=== PATIENT | female | born 1965 | race Caucasian/White ===

== ENCOUNTER 2017-11-17 14:33 | Emergency (ER) | payer SELFPAY ==
[2016-01-05 09:26] VITALS: Ht 154.9 cm; Wt 81.6 kg
[~2017-11-17] VITALS: Ht 154.9 cm; Wt 81.6 kg
[~2017-11-17 14:33] MED LIST: ALB0.5 INH; ALB17R INH; ALBU8.5H12 IH; ALBUDR INH; ALPR-429 PO; AMLO-96 PO; AMLO-99 PO; ATOR10TA2 PO; ATOR20TA22 PO; AUG500 PO; AZI250 PO; AZIT500T47 PO; BACDS PO; BUTA-324 PO; CAR350 PO; CARI250T10 PO; CEP500 PO; CIP500 PO; CIPR-214 PO; CIPR-326 PO; CIT20 PO; CITA-156 PO; CLIN150C15 PO; CLON-1 PO; CYC10 PO; CYCL-277 PO; CYCL-332 PO; CYCL-343 PO; CYCL10TA29 PO; DIA5 PO; DIAZ-1 PO; DICL-195 PO; DIP25 PO; DOC100 PO; DOXY-179 PO; ESC10 PO; FIO PO; FLU20 PO; FLUO40CA76 PO; GABA-1 PO; HCTZ25 GT; HCTZ25 PO; HYD2 PO; HYDR-2966 PO; HYDR-3074 PO; HYDR-3250 GT; HYDR-3250 PO; HYDR-4228 PO; HYDR-4240 PO; HYDR-4309 PO; HYDR12.558 PO; HYDR50CA47 PO; IBU600 PO; IBU800 PO; IBUP-1618 PO; IBUP600T22 PO; IPRA3AMP36 IH; KET10 PO; LEVE250T63 PO; LEVO-85 PO; LEVO750T27 PO; LID5T TP; LOR05 PO; LOR1 PO; LOR5 PO; LOR5/325 PO; LOR7.5/325 PO; LOR75 PO; LORA-1456 PO; LORA-630 PO; MEC25 PO; MECL-111 PO; MECL-205 PO; MET50 PO; META400T PO; METH-280 PO; METH-543 PO; METH500T PO; METO25TA93 PO; METO50TA GT; METO50TA PO; METR-1 PO; METXL50 PO; MORS15 PO; NAP250 PO; NAP375 PO; NAP500 PO; NAP550 PO; NAPR275T86 PO; ONDA4TAB PO; OXYC-373 PO; OXYC-689 PO; OXYC-865 PO; OXYC1TAB54 PO; PARO10OR3 PO; PARO30TA71 PO; PER PO; PHEN200T32 PO; PRE10 PO; PRE20 PO; PRED-314 PO; PRED20TA6 PO; PRO25 PO; PROAIRPT IH; PROM-110 PO; PROM25S PR; RAN150 PO; ROBC PO; SER50 PO; SOMA; SULF-198 PO; SUMA50TA34 PO; TIZ4 GT; TRA50 PO; TRAM-420 PO; TRAZ50 PO; ULT PO; [UNRECOGNIZED DRUG - CODE] IV
--- NOTE | 2017-11-17 14:53 | ER Report ---
History and Physical Time Seen By MD: 14:52 HPI/ROS CHIEF COMPLAINT: foot pain HISTORY OF PRESENT ILLNESS: This is a 52 year old female. She had pain in the great toe of the right foot. Painful even to light touch. Swelling and hot. Has had similar previously and though she had gout. Family history of gout. No injury. No rash or sores. Allergies: Coded Allergies: amitriptyline (Verified Allergy, Severe, SWELLING, 11/17/17) Penicillins (Verified Allergy, Intermediate, SWELLING, 11/17/17) indomethacin (Verified Allergy, Intermediate, 11/17/17) metaxalone (Verified Allergy, Intermediate, ANXIETY, PACING, FEELS SWELLING IN THROAT, 11/17/17) trazodone (Verified Allergy, Intermediate, SWELLING, 11/17/17) amoxicillin (Verified Allergy, Unknown, 11/17/17) baclofen (Verified Allergy, Unknown, 11/17/17) cyclobenzaprine (Verified Allergy, Unknown, 11/17/17) Uncoded Allergies: SOME CHOLESTEROL MED (Adverse Reaction, Mild, 06/01/11) Home Meds Active Scripts Oxycodone Hcl/Acetaminophen (PERCOCET 5-325 MG TABLET) 1 Each Tablet, 1 EACH PO Q4H Y for PAIN, #12 TAB 0 Refills Prov:YADIRA BASSETT MD 11/17/17 Methylprednisolone (METHYLPREDNISOLONE) 4 Mg Tab.ds.pk, 4 MG PO DIRECTED, #1 PACK 0 Refills Prov:YADIRA BASSETT MD 11/17/17 Ondansetron (ZOFRAN ODT) 4 Mg Tab.rapdis, 4 MG PO Q6H Y for NAUSEA/VOMITING, # 20 TAB.ESTHER Prov:JUVENTINO PEREZ PA-C 04/06/17 Tramadol Hcl (TRAMADOL HCL) 50 Mg Tablet, 50-100 MG PO Q4-6H for PAIN, #20 TAB Prov:MATTHEW BRADFORD DO 04/01/16 Reported Medications Lorazepam (LORAZEPAM) 0.5 Mg Tablet, 0.5 MG PO PRN 03/04/17 Amlodipine Besylate (AMLODIPINE BESYLATE) 10 Mg Tablet, 1 TAB PO QDAY, TAB 03/04/17 Paroxetine Hcl (PAROXETINE HCL) 30 Mg Tablet, 30 MG PO HS 08/12/16 Discontinued Scripts Diazepam (VALIUM) 5 Mg Tablet, 5 MG PO Q6-8H Y for MUSCLE SPASMS, #15 TAB Prov:ALEXANDRA SERRANO V DO 09/02/17 Oxycodone Hcl/Acetaminophen (OXYCODONE-ACETAMINOPHEN 5-325) 1 Each Tablet, 1 EACH PO Q6-8H Y for PAIN, #12 TAB Prov:ALEXANDRA SERRANO V DO 09/02/17 Reviewed Nurses Notes: Yes Hx Smoking: Yes (VAPOR) Smoking Status: Current: Every Day Smoker Exposure to Second Hand Smoke?: No Hx Substance Use Disorder: No Hx Alcohol Use: No Constitutional Vital Sign - Last 24 Hours 11/17/17 11/17/17 14:51 16:30 Temp 98.3 Pulse 93 Resp 22 B/P (MAP) 147/84 153/93 (113) Pulse Ox 98 O2 Delivery Room Air Physical Exam General: Alert, acute distress due to pain. Musculoskeletal: Pain right great toe. Pain with palpation, even light palpation. Pain with movement. No deformity. Skin: Red, warm, no skin breakdown. Cardiovascular: normal cap refill. Neuro: Normal sensation. Medical Decision Making Data Points Result Diagram: 11/17/17 1554 11/17/17 1554 Laboratory Hematology Test 11/17/17 15:54 Red Blood Count 5.25 M/uL (4.17-5.56) Mean Corpuscular Volume 86.4 fL (80.0-96.0) Mean Corpuscular Hemoglobin 29.7 pg (26.0-33.0) Mean Corpuscular Hemoglobin Concent 34.4 g/dL (32.0-36.0) Red Cell Distribution Width 13.1 % (11.5-14.5) Mean Platelet Volume 9.1 fL (7.2-11.1) Neutrophils (%) (Auto) 72.6 % (39.4-72.5) Lymphocytes (%) (Auto) 17.9 % (17.6-49.6) Monocytes (%) (Auto) 5.9 % (4.1-12.4) Eosinophils (%) (Auto) 2.7 % (0.4-6.7) Basophils (%) (Auto) 0.9 % (0.3-1.4) Nucleated RBC Relative Count (auto) 0.0 /100WBC Neutrophils # (Auto) 7.7 K/uL (2.0-7.4) Lymphocytes # (Auto) 1.9 K/uL (1.3-3.6) Monocytes # (Auto) 0.6 K/uL (0.3-1.0) Eosinophils # (Auto) 0.3 K/uL (0.0-0.5) Basophils # (Auto) 0.1 K/uL (0.0-0.1) Nucleated RBC Absolute Count (auto) 0.00 K/uL Sodium Level 142 mmol/L (137-145) Potassium Level 3.7 mmol/L (3.5-5.0) Chloride Level 103 mmol/L (98-107) Carbon Dioxide Level 27 mmol/L (22-31) Blood Urea Nitrogen 12 mg/dl (7-18) Creatinine 0.80 mg/dl (0.52-1.04) Glomerular Filtration Rate Calc > 60.0 Random Glucose 101 mg/dl (75-110) Uric Acid 5.8 mg/dl (2.5-7.5) Calcium Level 8.9 mg/dl (8.4-10.2) Total Bilirubin 0.2 mg/dl (0.2-1.3) Aspartate Amino Transf (AST/SGOT) 23 U/L (0-35) Alanine Aminotransferase (ALT/SGPT) 35 U/L (0-56) Alkaline Phosphatase 100 U/L (0-126) Total Protein 7.7 gm/dl (6.3-8.2) Albumin 4.1 g/dl (3.5-5.0) Chemistry Test 11/17/17 15:54 White Blood Count 10.6 k/uL (4.5-11.0) Red Blood Count 5.25 M/uL (4.17-5.56) Hemoglobin 15.6 g/dL (12.0-16.0) Hematocrit 45.4 % (34.0-47.0) Mean Corpuscular Volume 86.4 fL (80.0-96.0) Mean Corpuscular Hemoglobin 29.7 pg (26.0-33.0) Mean Corpuscular Hemoglobin Concent 34.4 g/dL (32.0-36.0) Red Cell Distribution Width 13.1 % (11.5-14.5) Platelet Count 279 K/uL (150-450) Mean Platelet Volume 9.1 fL (7.2-11.1) Neutrophils (%) (Auto) 72.6 % (39.4-72.5) Lymphocytes (%) (Auto) 17.9 % (17.6-49.6) Monocytes (%) (Auto) 5.9 % (4.1-12.4) Eosinophils (%) (Auto) 2.7 % (0.4-6.7) Basophils (%) (Auto) 0.9 % (0.3-1.4) Nucleated RBC Relative Count (auto) 0.0 /100WBC Neutrophils # (Auto) 7.7 K/uL (2.0-7.4) Lymphocytes # (Auto) 1.9 K/uL (1.3-3.6) Monocytes # (Auto) 0.6 K/uL (0.3-1.0) Eosinophils # (Auto) 0.3 K/uL (0.0-0.5) Basophils # (Auto) 0.1 K/uL (0.0-0.1) Nucleated RBC Absolute Count (auto) 0.00 K/uL Glomerular Filtration Rate Calc > 60.0 Uric Acid 5.8 mg/dl (2.5-7.5) Calcium Level 8.9 mg/dl (8.4-10.2) Total Bilirubin 0.2 mg/dl (0.2-1.3) Aspartate Amino Transf (AST/SGOT) 23 U/L (0-35) Alanine Aminotransferase (ALT/SGPT) 35 U/L (0-56) Alkaline Phosphatase 100 U/L (0-126) Total Protein 7.7 gm/dl (6.3-8.2) Albumin 4.1 g/dl (3.5-5.0) EKG/Imaging Imaging Exam type: TOE RIGHT FOOT GREAT TOE History: toe pain Comparison: None Findings: There are mild degenerative changes of the right first metatarsophalangeal joint with lateral spurring. There is no evidence of acute fracture or dislocation seen. There is mild narrowing at the IP joint of the right great toe as well. IMPRESSION: 1. Moderate joint changes at the right first metatarsophalangeal joint and first IP joint Report Dictated By: Bailey Woody MD at 11/17/2017 3:49 PM ED Course/Re-evaluation ED Course Gave Percocet 5/325 2 tablets for pain. Imaging as noted above. Labs unremarkable. Allergy to indomethacin, will give Medrol dosepack and Percocet for pain. Decision to Disposition Date: Nov 17, 2017 Decision to Disposition Time: 16:34 Depart Departure Latest Vital Signs Vital Signs Date Time Temp Pulse Resp B/P (MAP) Pulse Ox O2 Delivery O2 Flow Rate FiO2 11/17/17 16:30 153/93 (113) 11/17/17 14:51 98.3 93 22 98 Room Air Impression: Primary Impression: Gout Condition: Improved Disposition: HOME OR SELF-CARE New Scripts Oxycodone Hcl/Acetaminophen (PERCOCET 5-325 MG TABLET) 1 Each Tablet 1 EACH PO Q4H Y for PAIN, #12 TAB 0 Refills Prov: YADIRA BASSETT MD 11/17/17 Methylprednisolone (METHYLPREDNISOLONE) 4 Mg Tab.ds.pk 4 MG PO DIRECTED, #1 PACK 0 Refills Prov: YADIRA BASSETT MD 11/17/17 Patient Instructions: Gout (ED) Additional Instructions: Take the steroid pack Medrol dosepak over the next 6 days. Take Percocet 5/325, one every 4 hours as needed for pain. Problem Qualifiers Primary Impression: Gout Gout site: toe Gout etiology: unspecified cause Chronicity: acute Laterality: right Qualified Codes: M10.9 - Gout, unspecified YADIRA BASSETT MD Nov 17, 2017 14:53
--- NOTE | 2017-11-17 15:55 | RADIOLOGY IMAGING REPORT ---
FACILITY: [facility] PATIENT NAME: Veronica Rosario : 1965 MR: [id number] V: [id number] EXAM DATE: ORDERING PHYSICIAN: YADIRA BASSETT TECHNOLOGIST: Location: [facility] - [place] Patient: Veronica Rosario : 1965 Visit/Account:[id number] Date of Sevice: 11/17/2017 Exam type: TOE RIGHT FOOT GREAT TOE History: toe pain Comparison: None Findings: There are mild degenerative changes of the right first metatarsophalangeal joint with lateral spurrin g. There is no evidence of acute fracture or dislocation seen. There is mild narrowing at the IP juan int of the right great toe as well. IMPRESSION: 1. Moderate joint changes at the right first metatarsophalangeal joint and first IP joint Report Dictated By: Bailey Woody MD at 11/17/2017 3:49 PM Report E-Signed By: Bailey Woody MD at 11/17/2017 3:51 PM WSN:[email or web address]
[2017-11-17 16:08] LABS: PLATELET COUNT, AUTOMATED 279 K/uL (150-450)
[2017-11-17 16:30] VITALS: BP 153/93
[2017-11-17] MEDS ORDERED: OXYC-865 PO (16:37)
[2017-11-17] MEDS ORDERED: METH4TAB66 PO (16:37)
== END 2017-11-17 16:53 | disposition home or self-care (01) ==
LOC: ER 15:00
DX: M10.9 Gout, unspecified (principal)
CPT/HCPCS: 36415; 82040; 82247; 82310; 82374; 82435; 82565; 82947; 84075; 84132; 84155; 84295; 84450; 84460; 84520; 84550; 85025; 99283

== ENCOUNTER 2018-02-12 10:10 | Emergency (ER) | payer SELFPAY ==
[2016-01-05 09:26] VITALS: Wt 89.4 kg
[~2018-02-12 10:10] MED LIST changes: +METH4TAB66 PO
[2018-02-12] MEDS ORDERED: TIZA2CAP3 PO (10:22)
[2018-02-12] MEDS ORDERED: LIDO700A19 (10:22)
[2018-02-12] MEDS ORDERED: LISI5TAB25 PO (10:22)
[2018-02-12] MEDS ORDERED: NS(*) 0.9% 1000 ML BAG 1,000 ML IV ONE (10:24)
[2018-02-12] MEDS ORDERED: diphenhydrAMINE 50 MG/ML VIAL IVP ONE (10:25)
[2018-02-12] MEDS ORDERED: METOCLOPRAMIDE 10 MG/2 ML SDV IVP ONE (10:25)
[2018-02-12] MEDS ORDERED: KETOROLAC 30 MG/ML VIAL IVP ONE (10:25)
--- NOTE | 2018-02-12 10:27 | ER Report ---
History and Physical Time Seen By MD: 10:26 Hx. of Stated Complaint: PT HAVING USUAL MIGRAINE, AWOKE HER AT 0200, WITH N/V HPI/ROS CHIEF COMPLAINT: Typical migraine headache HISTORY OF PRESENT ILLNESS: Patient is a 53-year-old female with known migraine history who presents with her typical migraine symptoms. She denies any changes in character or quality of the pain. She woke up around 2 AM with headache and nausea and vomiting. This is persistent through this morning which is why she comes to the emergency department for evaluation. Patient denies head injury. She denies any fever or other infectious type symptoms. She denies neck stiffness. REVIEW OF SYSTEMS: Constitutional: No fever, no chills. Eyes: No discharge. ENT: No sore throat. Cardiovascular: No chest pain, no palpitations. Respiratory: No cough, no shortness of breath. Gastrointestinal: Nausea with vomiting Genitourinary: No hematuria. Musculoskeletal: No back pain. Skin: No rashes. Neurological: Headache Allergies: Coded Allergies: amitriptyline (Verified Allergy, Severe, SWELLING, 02/12/18) Penicillins (Verified Allergy, Intermediate, SWELLING, 02/12/18) indomethacin (Verified Allergy, Intermediate, 02/12/18) metaxalone (Verified Allergy, Intermediate, ANXIETY, PACING, FEELS SWELLING IN THROAT, 02/12/18) trazodone (Verified Allergy, Intermediate, SWELLING, 02/12/18) amoxicillin (Verified Allergy, Unknown, 11/17/17) baclofen (Verified Allergy, Unknown, 02/12/18) cyclobenzaprine (Verified Allergy, Unknown, 02/12/18) Uncoded Allergies: SOME CHOLESTEROL MED (Adverse Reaction, Mild, 06/01/11) Home Meds Active Scripts Oxycodone Hcl/Acetaminophen (PERCOCET 5-325 MG TABLET) 1 Each Tablet, 1 EACH PO Q4H Y for PAIN, #12 TAB 0 Refills Prov:YADIRA BASSETT MD 11/17/17 Reported Medications Lidocaine (Lidocaine) 5 % Adh..patch 02/12/18 Lisinopril (LISINOPRIL) 5 Mg Tablet, 5 MG PO QDAY, TAB 02/12/18 Tizanidine Hcl (TIZANIDINE HCL) 2 Mg Capsule, 2 MG PO TID, CAPSULE 02/12/18 Amlodipine Besylate (AMLODIPINE BESYLATE) 10 Mg Tablet, 1 TAB PO QDAY, TAB 03/04/17 Paroxetine Hcl (PAROXETINE HCL) 30 Mg Tablet, 30 MG PO HS 08/12/16 Discontinued Reported Medications Lorazepam (LORAZEPAM) 0.5 Mg Tablet, 0.5 MG PO PRN 03/04/17 Discontinued Scripts Methylprednisolone (METHYLPREDNISOLONE) 4 Mg Tab.ds.pk, 4 MG PO DIRECTED, #1 PACK 0 Refills Prov:YADIRA BASSETT MD 11/17/17 Ondansetron (ZOFRAN ODT) 4 Mg Tab.rapdis, 4 MG PO Q6H Y for NAUSEA/VOMITING, # 20 TAB.ESTHER Prov:JUVENTINO PEREZ PA-C 04/06/17 Tramadol Hcl (TRAMADOL HCL) 50 Mg Tablet, 50-100 MG PO Q4-6H for PAIN, #20 TAB Prov:MATTHEW BRADFORD DO 04/01/16 Past Medical/Surgical History Past medical history for hypertension lumbar degenerative disc disease, pneumonia, migraine headaches Hx Smoking: Yes (VAPOR) Smoking Status: Current: Every Day Smoker Exposure to Second Hand Smoke?: No Hx Substance Use Disorder: No Hx Alcohol Use: No Constitutional Vital Sign - Last 24 Hours 02/12/18 02/12/18 02/12/18 02/12/18 10:13 10:15 10:30 10:40 Temp 98.3 Pulse 93 Resp 24 B/P (MAP) 150/91 (110) 150/91 141/81 (101) Pulse Ox 95 O2 Flow Rate 2.0 02/12/18 10:40 Pulse 87 Pulse Ox 90 Physical Exam General/Constitutional: Patient is awake, alert, nontoxic and in no acute respiratory distress. Head: Normocephalic and atraumatic. Eyes: Conjunctival clear, Pupils are equal and reactive to light. Extraocular muscles are intact and symmetrical. Sclera are clear and anicteric. Ears:External canals are clear. Tympanic membranes are clear with normal landmarks and light reflex. Nares: No rhinorrhea or bleeding. Turbinates are pink and moist. Oropharyngeal: Mucous membranes are moist. There is no pharyngeal erythema or exudate. There are no palatal petechiae. Uvula is midline and symmetrical. Neck: Supple, no adenopathy. Cardiovascular: Heart is regular rate and rhythm without audible murmurs, rubs or gallops. Pulmonary: Lungs are clear to auscultation bilaterally. There are no wheezes, rales, or rhonchi. Chest rise is symmetrical Abdomen: Soft, nontender, no guarding or peritoneal signs. Extremities: No gross deformities, No peripheral cyanosis. Able to move all 4 extremities. Neuro: Alert and oriented X3, Cranial nerves 2 thru 12 are intact and symmetrical. Skin: No rashes, skin is warm dry and well perfused. Medical Decision Making Data Points Result Diagram: 02/12/18 1031 02/12/18 1031 Laboratory Hematology Test 02/12/18 10:31 Red Blood Count 6.22 M/uL (4.17-5.56) Mean Corpuscular Volume 88.4 fL (80.0-96.0) Mean Corpuscular Hemoglobin 29.5 pg (26.0-33.0) Mean Corpuscular Hemoglobin Concent 33.3 g/dL (32.0-36.0) Red Cell Distribution Width 14.2 % (11.5-14.5) Mean Platelet Volume 9.1 fL (7.2-11.1) Neutrophils (%) (Auto) 74.7 % (39.4-72.5) Lymphocytes (%) (Auto) 16.9 % (17.6-49.6) Monocytes (%) (Auto) 5.0 % (4.1-12.4) Eosinophils (%) (Auto) 2.1 % (0.4-6.7) Basophils (%) (Auto) 1.3 % (0.3-1.4) Nucleated RBC Relative Count (auto) 0.1 /100WBC Neutrophils # (Auto) 8.0 K/uL (2.0-7.4) Lymphocytes # (Auto) 1.8 K/uL (1.3-3.6) Monocytes # (Auto) 0.5 K/uL (0.3-1.0) Eosinophils # (Auto) 0.2 K/uL (0.0-0.5) Basophils # (Auto) 0.1 K/uL (0.0-0.1) Nucleated RBC Absolute Count (auto) 0.01 K/uL Sodium Level 146 mmol/L (137-145) Potassium Level 3.9 mmol/L (3.5-5.0) Chloride Level 98 mmol/L (98-107) Carbon Dioxide Level 30 mmol/L (22-31) Blood Urea Nitrogen 19 mg/dl (7-18) Creatinine 0.70 mg/dl (0.52-1.04) Glomerular Filtration Rate Calc > 60.0 Random Glucose 134 mg/dl (75-110) Calcium Level 10.4 mg/dl (8.4-10.2) Total Bilirubin 0.9 mg/dl (0.2-1.3) Aspartate Amino Transf (AST/SGOT) 28 U/L (0-35) Alanine Aminotransferase (ALT/SGPT) 35 U/L (0-56) Alkaline Phosphatase 73 U/L (0-126) Total Protein 10.1 gm/dl (6.3-8.2) Albumin 5.2 g/dl (3.5-5.0) Chemistry Test 02/12/18 10:31 White Blood Count 10.8 k/uL (4.5-11.0) Red Blood Count 6.22 M/uL (4.17-5.56) Hemoglobin 18.3 g/dL (12.0-16.0) Hematocrit 55.0 % (34.0-47.0) Mean Corpuscular Volume 88.4 fL (80.0-96.0) Mean Corpuscular Hemoglobin 29.5 pg (26.0-33.0) Mean Corpuscular Hemoglobin Concent 33.3 g/dL (32.0-36.0) Red Cell Distribution Width 14.2 % (11.5-14.5) Platelet Count 326 K/uL (150-450) Mean Platelet Volume 9.1 fL (7.2-11.1) Neutrophils (%) (Auto) 74.7 % (39.4-72.5) Lymphocytes (%) (Auto) 16.9 % (17.6-49.6) Monocytes (%) (Auto) 5.0 % (4.1-12.4) Eosinophils (%) (Auto) 2.1 % (0.4-6.7) Basophils (%) (Auto) 1.3 % (0.3-1.4) Nucleated RBC Relative Count (auto) 0.1 /100WBC Neutrophils # (Auto) 8.0 K/uL (2.0-7.4) Lymphocytes # (Auto) 1.8 K/uL (1.3-3.6) Monocytes # (Auto) 0.5 K/uL (0.3-1.0) Eosinophils # (Auto) 0.2 K/uL (0.0-0.5) Basophils # (Auto) 0.1 K/uL (0.0-0.1) Nucleated RBC Absolute Count (auto) 0.01 K/uL Glomerular Filtration Rate Calc > 60.0 Calcium Level 10.4 mg/dl (8.4-10.2) Total Bilirubin 0.9 mg/dl (0.2-1.3) Aspartate Amino Transf (AST/SGOT) 28 U/L (0-35) Alanine Aminotransferase (ALT/SGPT) 35 U/L (0-56) Alkaline Phosphatase 73 U/L (0-126) Total Protein 10.1 gm/dl (6.3-8.2) Albumin 5.2 g/dl (3.5-5.0) ED Course/Re-evaluation Clinical Indication for ER IV: Hydration, IV Access ED Course Patient with typical migraine headache. Plan this time will be IV access with IV Toradol, IV Zofran and IV fluids and IV Benadryl. We will check CBC and electrolytes. Re-evaluation 02/12/2018 11:12:12 am patient feeling improved at this time will discharge home Decision to Disposition Date: February 12, 2018 Decision to Disposition Time: 11:14 Depart Departure Latest Vital Signs Vital Signs Date Time Temp Pulse Resp B/P (MAP) Pulse Ox O2 Delivery O2 Flow Rate FiO2 02/12/18 10:40 87 90 02/12/18 10:40 2.0 02/12/18 10:30 141/81 (101) 02/12/18 10:15 98.3 24 Impression: Primary Impression: Migraine Condition: Improved Disposition: HOME OR SELF-CARE New Scripts Ondansetron Hcl (ZOFRAN) 4 Mg Tablet 4 MG PO Q8H for Nausea, #15 TAB 0 Refills Prov: VERNON LAWS MD 02/12/18 Oxycodone Hcl/Acetaminophen (PERCOCET 5-325 MG TABLET) 1 Each Tablet 1 EACH PO Q6H for PAIN, #9 TAB 0 Refills Prov: VERNON LAWS MD 02/12/18 Patient Instructions: Migraine Headache (GEN) Problem Qualifiers Primary Impression: Migraine Migraine type: unspecified Status migrainosus presence: without status migrainosus Intractability: not intractable Qualified Codes: G43.909 - Migraine, unspecified, not intractable, without status migrainosus VERNON LAWS MD February 12, 2018 10:27
[2018-02-12 10:51] LABS: PLATELET COUNT, AUTOMATED 326 K/uL (150-450)
[2018-02-12 11:00] VITALS: BP 132/71
[2018-02-12] MEDS ORDERED: OXYC-865 PO (11:13)
[2018-02-12] MEDS ORDERED: ONDA4TAB97 PO (11:13)
== END 2018-02-12 11:25 | disposition home or self-care (01) ==
LOC: ER 10:33
DX: G43.909 Migraine, unspecified, not intractable, without status migrainosus (principal)
CPT/HCPCS: 85025; 96361; 96374; 96375; 99284; J1200; J1885; J2765; J7030; 82040; 82247; 82310; 82374; 82435; 82565; 82947; 84075; 84132; 84155; 84295; 84450; 84460; 84520

== ENCOUNTER 2018-02-13 16:35 | Emergency (ER) | payer SELFPAY ==
[2016-01-05 09:26] VITALS: Wt 89.4 kg
[~2018-02-13 16:35] MED LIST changes: +LIDO700A19; +LISI5TAB25 PO; +ONDA4TAB97 PO; +TIZA2CAP3 PO
--- NOTE | 2018-02-13 16:41 | ER Report ---
History and Physical Time Seen By MD: 16:40 (JAYJAY HARRY DO) HPI/ROS CHIEF COMPLAINT: Headache, hypoxia, reported altered mental status at home while sleeping HISTORY OF PRESENT ILLNESS: Patient is a 53-year-old female here with complaints of headache, mental pain in and around her head. She was reportedly evaluated here yesterday at which time the pain was alleviated however the patient reports that the pain came back when she went home. She also feels as if she is "drunk" feeling. Patient was noted to be hypoxic with an oxygen saturation of 65 on room air at time of arrival. Patient admits to taking 1 Percocet this morning at approximately 6:00 and denies any other depressant usage. REVIEW OF SYSTEMS: Constitutional: No fever, + chills. Eyes: No discharge. ENT: No sore throat. Cardiovascular: No chest pain, no palpitations. Respiratory: No cough, no shortness of breath. Gastrointestinal: No abdominal pain, no vomiting. Genitourinary: No hematuria. Musculoskeletal: + chronic neck and back pain Skin: No rashes. Neurological: + headache. (JAYJAY HARRY DO) Allergies: Coded Allergies: amitriptyline (Verified Allergy, Severe, SWELLING, 02/12/18) Penicillins (Verified Allergy, Intermediate, SWELLING, 02/12/18) indomethacin (Verified Allergy, Intermediate, 02/12/18) metaxalone (Verified Allergy, Intermediate, ANXIETY, PACING, FEELS SWELLING IN THROAT, 02/12/18) trazodone (Verified Allergy, Intermediate, SWELLING, 02/12/18) amoxicillin (Verified Allergy, Unknown, 11/17/17) baclofen (Verified Allergy, Unknown, 02/12/18) cyclobenzaprine (Verified Allergy, Unknown, 02/12/18) Uncoded Allergies: SOME CHOLESTEROL MED (Adverse Reaction, Mild, 06/01/11) Home Meds Active Scripts Ondansetron Hcl (ZOFRAN) 4 Mg Tablet, 4 MG PO Q8H for Nausea, #15 TAB 0 Refills Prov:VERNON LAWS MD 02/12/18 Oxycodone Hcl/Acetaminophen (PERCOCET 5-325 MG TABLET) 1 Each Tablet, 1 EACH PO Q6H for PAIN, #9 TAB 0 Refills Prov:VERNON LAWS MD 02/12/18 Oxycodone Hcl/Acetaminophen (PERCOCET 5-325 MG TABLET) 1 Each Tablet, 1 EACH PO Q4H Y for PAIN, #12 TAB 0 Refills Prov:YADIRA BASSETT MD 11/17/17 Reported Medications Lidocaine (Lidocaine) 5 % Adh..patch 02/12/18 Lisinopril (LISINOPRIL) 5 Mg Tablet, 5 MG PO QDAY, TAB 02/12/18 Tizanidine Hcl (TIZANIDINE HCL) 2 Mg Capsule, 2 MG PO TID, CAPSULE 02/12/18 Amlodipine Besylate (AMLODIPINE BESYLATE) 10 Mg Tablet, 1 TAB PO QDAY, TAB 03/04/17 Paroxetine Hcl (PAROXETINE HCL) 30 Mg Tablet, 30 MG PO HS 08/12/16 Discontinued Reported Medications Lorazepam (LORAZEPAM) 0.5 Mg Tablet, 0.5 MG PO PRN 03/04/17 Discontinued Scripts Methylprednisolone (METHYLPREDNISOLONE) 4 Mg Tab.ds.pk, 4 MG PO DIRECTED, #1 PACK 0 Refills Prov:YADIRA BASSETT MD 11/17/17 Ondansetron (ZOFRAN ODT) 4 Mg Tab.rapdis, 4 MG PO Q6H Y for NAUSEA/VOMITING, # 20 TAB.ESTHER Prov:JUVENTINO PEREZ PA-C 04/06/17 Tramadol Hcl (TRAMADOL HCL) 50 Mg Tablet, 50-100 MG PO Q4-6H for PAIN, #20 TAB Prov:MATTHEW BRADFORD DO 04/01/16 Past Medical/Surgical History Appendectomy, cholecystectomy, C sections x several (JAYJAY HARRY DO) Hx Smoking: Yes (VAPOR) Smoking Status: Current: Every Day Smoker Exposure to Second Hand Smoke?: No Hx Substance Use Disorder: No Hx Alcohol Use: No (JAYJAY HARRY DO) Constitutional Vital Sign - Last 24 Hours 02/13/18 02/13/18 02/13/18 02/13/18 16:42 16:43 17:00 17:05 Temp 99.3 Pulse 84 76 78 Resp 16 B/P (MAP) 149/91 145/82 (103) Pulse Ox 65 98 96 O2 Delivery Room Air O2 Flow Rate 4.0 02/13/18 02/13/18 02/13/18 02/13/18 17:20 17:50 18:00 18:20 Pulse 76 77 76 Resp 16 13 17 B/P (MAP) 147/128 (134) Pulse Ox 93 96 94 02/13/18 02/13/18 02/13/18 02/13/18 18:30 18:35 18:50 19:00 Pulse 75 87 Resp 23 B/P (MAP) 142/79 (100) 149/90 (109) Pulse Ox 98 97 02/13/18 02/13/18 02/13/18 02/13/18 19:05 19:20 19:20 19:20 Pulse ??? 76 Resp 11 Pulse Ox 100 97 96 O2 Delivery Nasal Cannula O2 Flow Rate 2.0 2.0 02/13/18 02/13/18 02/13/18 02/13/18 19:20 19:28 19:28 19:30 Pulse 79 76 Resp 18 18 B/P (MAP) 147/96 (113) Pulse Ox 99 O2 Delivery Nasal Cannula 02/13/18 02/13/18 02/13/18 19:35 19:40 19:45 Pulse 80 83 78 Resp 16 22 16 Pulse Ox 81 89 94 (ELAINE CHILEL DO) Physical Exam General Appearance: [The patient is alert, has no immediate need for airway protection and no signs of toxicity.] [ ] [Eyes:] [Pupils equal and round no pallor or injection.] [ENT, Mouth:] [Mucous membranes are moist.] Respiratory: [There are no retractions, lungs are clear to auscultation.] Cardiovascular: [Regular rate and rhythm.] [ ] Gastrointestinal: [Abdomen is soft and non tender, no masses, bowel sounds normal.] [Neurological:] [ ] [Skin:] [Warm and dry, no rashes.] [Musculoskeletal:] [Neck is supple non tender.] [Extremities are nontender, nonswollen and have full range of motion.] [ ] [DIFFERENTIAL DIAGNOSIS: After history and physical exam differential diagnosis was considered for] [ ] (JAYJAY HARRY DO) Medical Decision Making Data Points Result Diagram: 02/13/18 1710 02/13/18 171 Laboratory Hematology Test 02/13/18 17:10 02/13/18 18:14 Red Blood Count 4.88 M/uL (4.17-5.56) Mean Corpuscular Volume 87.4 fL (80.0-96.0) Mean Corpuscular Hemoglobin 30.6 pg (26.0-33.0) Mean Corpuscular Hemoglobin Concent 35.0 g/dL (32.0-36.0) Red Cell Distribution Width 14.0 % (11.5-14.5) Mean Platelet Volume 8.7 fL (7.2-11.1) Neutrophils (%) (Auto) 87.8 % (39.4-72.5) Lymphocytes (%) (Auto) 8.5 % (17.6-49.6) Monocytes (%) (Auto) 3.0 % (4.1-12.4) Eosinophils (%) (Auto) 0.1 % (0.4-6.7) Basophils (%) (Auto) 0.6 % (0.3-1.4) Nucleated RBC Relative Count (auto) 0.0 /100WBC Neutrophils # (Auto) 8.9 K/uL (2.0-7.4) Lymphocytes # (Auto) 0.9 K/uL (1.3-3.6) Monocytes # (Auto) 0.3 K/uL (0.3-1.0) Eosinophils # (Auto) 0.0 K/uL (0.0-0.5) Basophils # (Auto) 0.1 K/uL (0.0-0.1) Nucleated RBC Absolute Count (auto) 0.00 K/uL Erythrocyte Sedimentation Rate 15 mm/HOUR (0-30) D-Dimer Quantitative (PE/DVT) 0.39 ug/ml (0-0.50) Blood Gas Patient Temperature Unknown DEGREES Venous Blood pH 7.33 (7.31-7.41) Venous Blood Partial Pressure CO2 53 mmHg Venous Blood Partial Pressure O2 48 mmHg Venous Blood HCO3 28 mmol/L Venous Blood Oxygen Saturation 79 % Venous Blood Base Excess 2 mmol/L Carboxyhemoglobin 2.1 % (< 5.0) Oxygen Liters/Minute Unknown Sodium Level 139 mmol/L (137-145) Potassium Level 3.7 mmol/L (3.5-5.0) Chloride Level 97 mmol/L (98-107) Carbon Dioxide Level 29 mmol/L (22-31) Blood Urea Nitrogen 17 mg/dl (7-18) Creatinine 0.50 mg/dl (0.52-1.04) Glomerular Filtration Rate Calc > 60.0 Random Glucose 146 mg/dl (75-110) Calcium Level 9.6 mg/dl (8.4-10.2) Total Bilirubin 0.4 mg/dl (0.2-1.3) Aspartate Amino Transf (AST/SGOT) 26 U/L (0-35) Alanine Aminotransferase (ALT/SGPT) 27 U/L (0-56) Alkaline Phosphatase 62 U/L (0-126) Total Protein 8.0 gm/dl (6.3-8.2) Albumin 4.3 g/dl (3.5-5.0) Urine Color Yellow Urine Clarity Slightly-cloudy Urine pH 6.0 pH (4.8-9.5) Urine Specific Monarch 1.012 Urine Protein Negative mg/dL (NEGATIVE) Urine Glucose (UA) Negative mg/dL (NEGATIVE) Urine Ketones Negative mg/dL (NEGATIVE) Urine Blood Negative (NEGATIVE) Urine Nitrite Negative (NEGATIVE) Urine Bilirubin Negative (NEGATIVE) Urine Urobilinogen Negative mg/dL (0.2-1.9) Urine Leukocyte Esterase Trace (NEGATIVE) Urine RBC 1 /HPF (0-2/HPF) Urine WBC 5 /HPF (0-5/HPF) Urine Squamous Epithelial Cells Many /LPF (</=FEW) Urine Bacteria Negative /HPF (NONE-FEW) Urine Mucus None /HPF (NONE-FEW) Chemistry Test 02/13/18 17:10 02/13/18 18:14 White Blood Count 10.1 k/uL (4.5-11.0) Red Blood Count 4.88 M/uL (4.17-5.56) Hemoglobin 15.0 g/dL (12.0-16.0) Hematocrit 42.7 % (34.0-47.0) Mean Corpuscular Volume 87.4 fL (80.0-96.0) Mean Corpuscular Hemoglobin 30.6 pg (26.0-33.0) Mean Corpuscular Hemoglobin Concent 35.0 g/dL (32.0-36.0) Red Cell Distribution Width 14.0 % (11.5-14.5) Platelet Count 232 K/uL (150-450) Mean Platelet Volume 8.7 fL (7.2-11.1) Neutrophils (%) (Auto) 87.8 % (39.4-72.5) Lymphocytes (%) (Auto) 8.5 % (17.6-49.6) Monocytes (%) (Auto) 3.0 % (4.1-12.4) Eosinophils (%) (Auto) 0.1 % (0.4-6.7) Basophils (%) (Auto) 0.6 % (0.3-1.4) Nucleated RBC Relative Count (auto) 0.0 /100WBC Neutrophils # (Auto) 8.9 K/uL (2.0-7.4) Lymphocytes # (Auto) 0.9 K/uL (1.3-3.6) Monocytes # (Auto) 0.3 K/uL (0.3-1.0) Eosinophils # (Auto) 0.0 K/uL (0.0-0.5) Basophils # (Auto) 0.1 K/uL (0.0-0.1) Nucleated RBC Absolute Count (auto) 0.00 K/uL Erythrocyte Sedimentation Rate 15 mm/HOUR (0-30) D-Dimer Quantitative (PE/DVT) 0.39 ug/ml (0-0.50) Blood Gas Patient Temperature Unknown DEGREES Venous Blood pH 7.33 (7.31-7.41) Venous Blood Partial Pressure CO2 53 mmHg Venous Blood Partial Pressure O2 48 mmHg Venous Blood HCO3 28 mmol/L Venous Blood Oxygen Saturation 79 % Venous Blood Base Excess 2 mmol/L Carboxyhemoglobin 2.1 % (< 5.0) Oxygen Liters/Minute Unknown Glomerular Filtration Rate Calc > 60.0 Calcium Level 9.6 mg/dl (8.4-10.2) Total Bilirubin 0.4 mg/dl (0.2-1.3) Aspartate Amino Transf (AST/SGOT) 26 U/L (0-35) Alanine Aminotransferase (ALT/SGPT) 27 U/L (0-56) Alkaline Phosphatase 62 U/L (0-126) Total Protein 8.0 gm/dl (6.3-8.2) Albumin 4.3 g/dl (3.5-5.0) Urine Color Yellow Urine Clarity Slightly-cloudy Urine pH 6.0 pH (4.8-9.5) Urine Specific Monarch 1.012 Urine Protein Negative mg/dL (NEGATIVE) Urine Glucose (UA) Negative mg/dL (NEGATIVE) Urine Ketones Negative mg/dL (NEGATIVE) Urine Blood Negative (NEGATIVE) Urine Nitrite Negative (NEGATIVE) Urine Bilirubin Negative (NEGATIVE) Urine Urobilinogen Negative mg/dL (0.2-1.9) Urine Leukocyte Esterase Trace (NEGATIVE) Urine RBC 1 /HPF (0-2/HPF) Urine WBC 5 /HPF (0-5/HPF) Urine Squamous Epithelial Cells Many /LPF (</=FEW) Urine Bacteria Negative /HPF (NONE-FEW) Urine Mucus None /HPF (NONE-FEW) Coagulation Test 02/13/18 17:10 D-Dimer Quantitative (PE/DVT) 0.39 ug/ml Urinalysis Test 02/13/18 18:14 Urine Color Yellow Urine Clarity Slightly-cloudy Urine pH 6.0 pH (4.8-9.5) Urine Specific Monarch 1.012 Urine Protein Negative mg/dL (NEGATIVE) Urine Glucose (UA) Negative mg/dL (NEGATIVE) Urine Ketones Negative mg/dL (NEGATIVE) Urine Blood Negative (NEGATIVE) Urine Nitrite Negative (NEGATIVE) Urine Bilirubin Negative (NEGATIVE) Urine Urobilinogen Negative mg/dL (0.2-1.9) Urine Leukocyte Esterase Trace (NEGATIVE) Urine RBC 1 /HPF (0-2/HPF) Urine WBC 5 /HPF (0-5/HPF) Urine Squamous Epithelial Cells Many /LPF (</=FEW) Urine Bacteria Negative /HPF (NONE-FEW) Urine Mucus None /HPF (NONE-FEW) (ELAINE CHILEL DO) EKG/Imaging Imaging 2 VIEWS CHEST INDICATION: Headache. Sensitivity to light. COMPARISON: 08/12/2016. FINDINGS: Cardiomediastinal silhouette and pulmonary vessels within normal limits. There is no focal infiltrate or lobar consolidation. There is no pneumothorax or pleural effusion. Persistent right basilar atelectasis. Continued eventration/elevation the right hemidiaphragm. Upper abdomen is unremarkable. No acute bony abnormality. IMPRESSION: 1. No acute cardiopulmonary process. CT Head without contrast Indication: Headache and sensitivity to light. Comparison: 01/04/2016. Technique: Axial CT images were obtained through the brain from the skull base to the vertex without administration of IV contrast. Reformatted coronal and sagittal images were also obtained. One of the following dose optimization techniques was utilized in the performance of this exam: automated exposure control; adjustment of the mA and/ or kV according to the patient's size; or use of an iterative reconstruction technique. Specific details can be referenced in the facility's radiology CT exam operational policy. Findings: No evidence of mass, mass effect, or midline shift. No acute intracranial hemorrhage or acute territorial infarction. No extra-axial fluid collection or hydrocephalus. No abnormal density. Dewitt/ white matter differentiation appears normal. Benign calcifications along the falx. Bony structures show no fracture or aggressive bony lesion. Mild rightward deviation nasal septum. The left maxilla sinus does show subcentimeter cyst/polyp. The remaining sinuses and mastoids visualized are clear. IMPRESSION: 1. No acute abnormality. CT PE pending (JAYJAY HARRY DO) ED Course/Re-evaluation ED Course Patient is a 53 yo F here with headache, lightheadedness, hypoxia initially with spo2 ~ 65%. Patient was seen here for migraine yesterday and she reports that the headache returned. Family noted that the patient was acting altered today when resting. She denies prior history of hypoxia but was noted to require oxygen after a prior pneumonia. CXR showed no acute findings. CT head/ brain showed no acute intracranial findings. Carboxyhemoglobin was elevated at 2.0. She ambulated to the bathroom and was noted to have oxygen saturations of 40% on RA prompting CT PE/Dimer to address the hypoxia. Patient was signed out to Dr. Chilel pending CT PE. Patient remained stable on 4 LPM NC. (JAYJAY HARRY DO) ED Course Care was assumed at shift change. Patient with gross hypoxia. D-dimer was negative, but a CT angiogram was ordered to rule out occult pulmonary embolism. Her CT scan was unremarkable. Patient was treated with Solu-Medrol 125 mg IV and a DuoNeb. On reevaluation, she still is mildly hypoxic. Her saturations dropped to the low 80s on room air. Patient was offered home O2. I see no indication for admission at this time. Patient's previously been on oxygen when she had pneumonia. She does have sleep apnea and likely COPD. Patient states she has access to home O2. A sister has a condenser. She states she will wear that. She has a follow-up appointment scheduled with her doctor tomorrow. Patient's advised to keep that appointment. Decision to Disposition Date: February 13, 2018 Decision to Disposition Time: 19:41 (ELAINE CHILEL DO) Depart Departure Latest Vital Signs Vital Signs Date Time Temp Pulse Resp B/P (MAP) Pulse Ox O2 Delivery O2 Flow Rate FiO2 02/13/18 19:45 78 16 94 02/13/18 19:30 147/96 (113) 02/13/18 19:28 Nasal Cannula 02/13/18 19:20 2.0 02/13/18 16:42 99.3 (ELAINE CHILEL DO) Impression: Primary Impression: Hypoxia Additional Impressions: Sleep apnea Asthma Condition: Improved Disposition: HOME OR SELF-CARE Patient Instructions: Hypoxia (ED), Sleep Apnea (GEN) Additional Instructions: Follow-up with your primary care doctor tomorrow as planned. Have your doctor, consider a sleep study for sleep apnea Problem Qualifiers Additional Impressions: Sleep apnea Sleep apnea type: unspecified type Qualified Codes: G47.30 - Sleep apnea, unspecified Asthma Asthma severity: mild Asthma persistence: intermittent Asthma complication type: unspecified Qualified Codes: J45.20 - Mild intermittent asthma, uncomplicated JAYJAY HARRY DO February 13, 2018 16:41 ELAINE CHILEL DO February 13, 2018 19:43
[2018-02-13] MEDS ORDERED: MAGNESIUM SUL* 2 GM/50 ML IVPB 50 ML IVPB ONE (16:55)
[2018-02-13] MEDS ORDERED: METOCLOPRAMIDE 10 MG/2 ML SDV IVP ONE (16:55)
[2018-02-13 17:15] LABS: PLATELET COUNT, AUTOMATED 232 K/uL (150-450)
--- NOTE | 2018-02-13 17:50 | RADIOLOGY IMAGING REPORT ---
FACILITY: [facility] - [place] PATIENT NAME: Veronica Rosario : 1965 MR: [id number] V: [id number] EXAM DATE: ORDERING PHYSICIAN: JAYJAY HARRY TECHNOLOGIST: Location: [facility] - [place] Patient: Veronica Rosario : 1965 Visit/Account:[id number] Date of Sevice: 02/13/2018 2 VIEWS CHEST INDICATION: Headache. Sensitivity to light. COMPARISON: 08/12/2016. FINDINGS: Cardiomediastinal silhouette and pulmonary vessels within normal limits. There is no focal infiltrate or lobar consolidation. There is no pneumothorax or pleural effusion. Persistent right basilar atelectasis. Continued eventration/elevation the right hemidiaphragm. Upper abdomen is unremarkable. No acute bony abnormality. IMPRESSION: 1. No acute cardiopulmonary process. Report Dictated By: Madan Ugalde at 02/13/2018 5:43 PM Report E-Signed By: Madan Ugalde at 02/13/2018 5:45 PM WSN:[id number]
[2018-02-13] MEDS ORDERED: diphenhydrAMINE 50 MG/ML VIAL IVP ONE (17:55)
--- NOTE | 2018-02-13 18:06 | RADIOLOGY IMAGING REPORT ---
FACILITY: [facility] PATIENT NAME: Veronica Rosario : 1965 MR: [id number] V: [id number] EXAM DATE: ORDERING PHYSICIAN: JAYJAY HARRY TECHNOLOGIST: Location: [facility] - [place] Patient: Veronica Rosario : 1965 Visit/Account:[id number] Date of Sevice: 02/13/2018 CT Head without contrast Indication: Headache and sensitivity to light. Comparison: 01/04/2016. Technique: Axial CT images were obtained through the brain from the skull base to the vertex without administration of IV contrast. Reformatted coronal and sagittal images were also obtained. One of the following dose optimization techniques was utilized in the performance of this exam: autom ated exposure control; adjustment of the mA and/or kV according to the patient's size; or use of an i terative reconstruction technique. Specific details can be referenced in the facility's radiology CT exam operational policy. Findings: No evidence of mass, mass effect, or midline shift. No acute intracranial hemorrhage or acute territorial infarction. No extra-axial fluid collection or hydrocephalus. No abnormal density. Dewitt/white matter differentiat ion appears normal. Benign calcifications along the falx. Bony structures show no fracture or aggressive bony lesion. Mild rightward deviation nasal septum. The left maxilla sinus does show subcentimeter cyst/polyp. The remaining sinuses and mastoids visuali zed are clear. IMPRESSION: 1. No acute abnormality. Report Dictated By: Madan Ugalde at 02/13/2018 5:56 PM Report E-Signed By: Madan Ugalde at 02/13/2018 6:03 PM WSN:[id number]
[2018-02-13] MEDS ORDERED: ALBUTEROL/IPRATROPIUM 3 ML NEB NEB ONE (18:30)
[2018-02-13] MEDS ORDERED: methylPREDNIS SUCC 125 MG/2ML IVP ONE (18:30)
[2018-02-13] MEDS ORDERED: IOPAMIDOL 76% 100 ML INFUS BTL 100 ML ONE (18:36)
[2018-02-13 19:30] VITALS: BP 147/96
--- NOTE | 2018-02-13 19:31 | RADIOLOGY IMAGING REPORT ---
FACILITY: [facility] - [place] PATIENT NAME: Veronica Rosario : 1965 MR: [id number] V: [id number] EXAM DATE: ORDERING PHYSICIAN: JAYJAY HARRY TECHNOLOGIST: Location: [facility] Patient: Veronica Rosario : 1965 Visit/Account:[id number] Date of Sevice: 02/13/2018 CT ANGIOGRAM OF THE CHEST WITH INTRAVENOUS CONTRAST, PE PROTOCOL DATE OF EXAM: 02/13/2018 18:14 COMPARISON: Chest radiograph of the same day. INDICATION: Hypoxia, 40% on RA. TECHNIQUE: Contrast enhanced chest CT performed during the injection of 100 ml of Isovue-370. Three- dimensional (MIP) reconstructions were performed. FINDINGS: There is no pulmonary arterial filling defect. Thyroid: Unremarkable thyroid. Thoracic inlet: No thoracic inlet adenopathy. Heart and great vessels: Heart size is normal. Mediastinum and nina: No mediastinal or hilar adenopathy. Lungs and pleura: No effusion, consolidation, or pneumothorax. Scattered atelectasis. Breast and axilla: Breast tissue is incompletely imaged but grossly unremarkable by CT. Bones and soft tissues: No acute osseous abnormality. Upper abdomen: Unremarkable. IMPRESSION: 1. Negative for pulmonary arterial embolus. One of the following dose optimization techniques was utilized in the performance of this exam: Autom ated exposure control; adjustment of the mA and/or kV according to the patient's size; or use of an i terative reconstruction technique. Specific details can be referenced in the facility's radiology C T exam operational policy. Report Dictated By: Sandra Evans MD at 02/13/2018 7:18 PM Report E-Signed By: Sandra Evans MD at 02/13/2018 7:27 PM WSN:[id number]
== END 2018-02-13 20:03 | disposition home or self-care (01) ==
LOC: ER 16:47
DX: R09.02 Hypoxemia (principal); G47.30 Sleep apnea, unspecified; J45.20 Mild intermittent asthma, uncomplicated
CPT/HCPCS: 70450; 71046; 71275; 81001; 82375; 82803; 85025; 85379; 85651; 94640; 96365; 96375; 99284; J1200; J2765; J2930; J3475; J7620; Q9967; 82040; 82247; 82310; 82374; 82435; 82565; 82947; 84075; 84132; 84155; 84295; 84450; 84460; 84520

== ENCOUNTER 2018-03-08 12:48 | Emergency (ER) | payer SELFPAY ==
[2016-01-05 09:26] VITALS: Wt 89.4 kg
[2018-03-08] MEDS ORDERED: KETOROLAC 60 MG/2 ML VIAL IM ONE (12:55)
--- NOTE | 2018-03-08 12:57 | ER Report ---
History and Physical Time Seen By MD: 12:55 HPI/ROS CHIEF COMPLAINT: Wrist pain low back pain after fall HISTORY OF PRESENT ILLNESS: 53-year-old female reportedly fell down 3 steps witnessed patient states that she hurt her left wrist and has pain in her lower back patient is a very frequent visitor to the emergency department with numerous pain complaints patient states that her left wrist pain with extension flexion rotation and ambulate but has low back discomfort with chronic history of low back pain patient has no additional complaints at this time REVIEW OF SYSTEMS: Respiratory: No cough, no dyspnea. Cardiovascular: No chest pain, no palpitations. Gastrointestinal: No vomiting, no abdominal pain. Musculoskeletal: Left wrist and low back pain Remainder of the 14 system rev: Yes Allergies: Coded Allergies: amitriptyline (Verified Allergy, Severe, SWELLING, 03/08/18) Penicillins (Verified Allergy, Intermediate, SWELLING, 03/08/18) indomethacin (Verified Allergy, Intermediate, 03/08/18) metaxalone (Verified Allergy, Intermediate, ANXIETY, PACING, FEELS SWELLING IN THROAT, 03/08/18) trazodone (Verified Allergy, Intermediate, SWELLING, 03/08/18) amoxicillin (Verified Allergy, Unknown, 03/08/18) baclofen (Verified Allergy, Unknown, 03/08/18) cyclobenzaprine (Verified Allergy, Unknown, 03/08/18) Uncoded Allergies: SOME CHOLESTEROL MED (Adverse Reaction, Mild, 06/01/11) Home Meds Active Scripts Ondansetron Hcl (ZOFRAN) 4 Mg Tablet, 4 MG PO Q8H for Nausea, #15 TAB 0 Refills Prov:VERNON LAWS MD 02/12/18 Oxycodone Hcl/Acetaminophen (PERCOCET 5-325 MG TABLET) 1 Each Tablet, 1 EACH PO Q6H for PAIN, #9 TAB 0 Refills Prov:VERNON LAWS MD 02/12/18 Oxycodone Hcl/Acetaminophen (PERCOCET 5-325 MG TABLET) 1 Each Tablet, 1 EACH PO Q4H Y for PAIN, #12 TAB 0 Refills Prov:YADIRA BASSETT MD 11/17/17 Reported Medications Lidocaine (Lidocaine) 5 % Adh..patch 02/12/18 Lisinopril (LISINOPRIL) 5 Mg Tablet, 5 MG PO QDAY, TAB 02/12/18 Tizanidine Hcl (TIZANIDINE HCL) 2 Mg Capsule, 2 MG PO TID, CAPSULE 02/12/18 Amlodipine Besylate (AMLODIPINE BESYLATE) 10 Mg Tablet, 1 TAB PO QDAY, TAB 03/04/17 Paroxetine Hcl (PAROXETINE HCL) 30 Mg Tablet, 30 MG PO HS 08/12/16 Reviewed Nurses Notes: Yes Old Medical Records Reviewed: Yes Hx Smoking: Yes (VAPOR) Smoking Status: Current: Every Day Smoker Exposure to Second Hand Smoke?: No Hx Substance Use Disorder: No Hx Alcohol Use: No Constitutional Vital Sign - Last 24 Hours 03/08/18 12:52 Temp 98.4 Pulse 103 Resp 22 B/P (MAP) 99/85 Pulse Ox 91 O2 Delivery Room Air Physical Exam General Appearance: The patient is alert, has no immediate need for airway protection and no current signs of toxicity. [ ] Eyes: Pupils equal and round no injection. Respiratory: Chest is non tender, lungs are clear to auscultation. Cardiac: regular rate and rhythm [ ] Gastrointestinal: Abdomen is soft and non tender, no masses, bowel sounds normal. Musculoskeletal: Pain with palpation anywhere on her lower back Neck is supple and non tender. Extremities have full range of motion and are non tender. Other than left wrist which is pain to extension flexion and rotation Skin: Small abrasion to the palmar aspect on the hyperthenar eminence of the left hand [ ] DIFFERENTIAL DIAGNOSIS: After history and physical exam differential diagnosis was considered for wrist fracture versus abrasion versus sprain Medical Decision Making ED Course/Re-evaluation ED Course Clinical course medical decision making 53-year-old female reportedly fell down some stairs x-rays of the lumbar spine wrist and the ventricular fracture wrist evaluation was performed no fractures dislocation subluxation we'll clean and dress her abrasion put her on with wrist wrap ice compression and elevation and Tylenol for pain Decision to Disposition Date: Mar 08, 2018 Decision to Disposition Time: 14:52 Depart Departure Latest Vital Signs Vital Signs Date Time Temp Pulse Resp B/P (MAP) Pulse Ox O2 Delivery O2 Flow Rate FiO2 03/08/18 12:52 98.4 103 22 99/85 91 Room Air Impression: Primary Impression: Wrist sprain Condition: Improved Disposition: HOME OR SELF-CARE Referrals: FRANCI SCANLON MD 5 Days Patient Instructions: Wrist Sprain (DC) ALBERT SUAREZ MD Mar 08, 2018 12:57
--- NOTE | 2018-03-08 13:58 | RADIOLOGY IMAGING REPORT ---
FACILITY: PATIENT NAME: Veronica Rosario : 1965 MR: [id number] V: [id number] EXAM DATE: ORDERING PHYSICIAN: ALBERT SUAREZ TECHNOLOGIST: [place] [facility] [place] : 1965 Visit/Account:[id number] Date of Sevice: 03/08/2018 Exam type: LUMBAR SPINE 2 OR 3 VIEW History: trauma Comparison: January 01, 2016. Findings: There are five nonrib-bearing lumbar-type vertebral bodies present. There is no evidence of acute fr actures or subluxations. There is mild disc space narrowing L5-S1. Mild degenerative facet joint ch anges are seen at L4-5 and L5-S1.. There is an ovoid calcification right-sided the pelvis was presen t previously IMPRESSION: 1. Mild degenerative changes in the lower lumbar spine although no evidence of acute fractures or fulton bluxations Report Dictated By: Bailey Woody MD at 03/08/2018 1:48 PM Report E-Signed By: Bailey Woody MD at 03/08/2018 1:53 PM WSN:[email or web address]
--- NOTE | 2018-03-08 14:01 | RADIOLOGY IMAGING REPORT ---
FACILITY: [facility] [place] PATIENT NAME: Veronica Rosario : 1965 MR: [id number] V: [id number] EXAM DATE: ORDERING PHYSICIAN: ALBERT SUAREZ TECHNOLOGIST: Location: [facility] [place] Patient: Veronica Rosario : 1965 Visit/Account:[id number] Date of Sevice: 03/08/2018 Exam type: WRIST LEFT MIN 3 VIEW History: trauma Comparison: Left hand March 31, 2013. Findings: Three views of the left wrist reveal a tiny radiopaque density projecting between the proximal portio n of the lunate bone and triquetrum. This could be related to a tiny avulsion fracture fragment vers us a chronic finding otherwise no definite fracture identified in the left wrist. A navicular view w as not performed. There are cystic changes in the lunate bone IMPRESSION: 1. Tiny opaque density projects between the proximal portion of the lunate bone and triquetrum. Thi s could be related to tiny avulsion fracture fragment versus a chronic finding. Otherwise no definit e fracture identified in the left wrist. Navicular view was not performed. If a navicular fracture is of clinical concern a navicular series is recommended Report Dictated By: Bailey Woody MD at 03/08/2018 1:53 PM Report E-Signed By: Bailey Woody MD at 03/08/2018 1:56 PM WSN:[email or web address]
[2018-03-08] MEDS ORDERED: ACETAMINOPHEN 500 MG TAB PO ONE (14:40)
--- NOTE | 2018-03-08 14:46 | RADIOLOGY IMAGING REPORT ---
FACILITY: PATIENT NAME: Veronica Rosario : 1965 MR: [id number] V: [id number] EXAM DATE: ORDERING PHYSICIAN: ALBERT SUAREZ TECHNOLOGIST: Location: [facility] Patient: Veronica Rosario : 1965 Visit/Account:[id number] Date of Sevice: 03/08/2018 Exam type: WRIST LEFT 2 VIEW History: navicular series Comparison: Series performed today. Findings: There is no radiographic evidence of a left navicular fracture. The scapholunate interval appears no rmal. IMPRESSION: 1. No evidence of the left navicular fracture Report Dictated By: Bailey Woody MD at 03/08/2018 2:40 PM Report E-Signed By: Bailey Woody MD at 03/08/2018 2:42 PM WSN:[email or web address]
[2018-03-08 14:59] VITALS: BP 128/99
== END 2018-03-08 15:01 | disposition home or self-care (01) ==
LOC: ER 12:49
DX: S63.502A Unspecified sprain of left wrist, initial encounter (principal); W10.9XXA Fall (on) (from) unspecified stairs and steps, initial encounter; F17.210 Nicotine dependence, cigarettes, uncomplicated
CPT/HCPCS: 72100; 73100; 73110; 96372; 99284; J1885

== ENCOUNTER 2018-03-11 10:03 | Emergency (ER) | payer SELFPAY ==
[2016-01-05 09:26] VITALS: Wt 89.4 kg
--- NOTE | 2018-03-11 10:06 | ER Report ---
History and Physical Time Seen By MD: 10:06 HPI/ROS CHIEF COMPLAINT: Headache, neck pain, lower back pain HISTORY OF PRESENT ILLNESS: Patient is a 53-year-old female here with reports of worsening headache and migraine symptoms as well as upper and lower back pain status post fall several days ago down steps. Patient denies loss of consciousness. Planes of upper neck pain with radiation bilaterally to her temples. She has a history of migraines and has been taking ibuprofen without relief of symptoms. Patient denies fevers, chills, blurred vision, chest pain, shortness of breath, nausea, vomiting. REVIEW OF SYSTEMS: Constitutional: No fever, no chills. Eyes: No discharge. ENT: No sore throat. Cardiovascular: No chest pain, no palpitations. Respiratory: No cough, no shortness of breath. Gastrointestinal: No abdominal pain, no vomiting. Genitourinary: No hematuria. Musculoskeletal: + upper and lower back pain. Skin: No rashes. Neurological: + bilateral headache. Allergies: Coded Allergies: amitriptyline (Verified Allergy, Severe, SWELLING, 03/08/18) Penicillins (Verified Allergy, Intermediate, SWELLING, 03/08/18) indomethacin (Verified Allergy, Intermediate, 03/08/18) metaxalone (Verified Allergy, Intermediate, ANXIETY, PACING, FEELS SWELLING IN THROAT, 03/08/18) trazodone (Verified Allergy, Intermediate, SWELLING, 03/08/18) amoxicillin (Verified Allergy, Unknown, 03/08/18) baclofen (Verified Allergy, Unknown, 03/08/18) cyclobenzaprine (Verified Allergy, Unknown, 03/08/18) Uncoded Allergies: SOME CHOLESTEROL MED (Adverse Reaction, Mild, 06/01/11) Home Meds Active Scripts Naproxen Sodium (ALEVE) 220 Mg Capsule, 440 MG PO TID for 10 Days, #60 CAPSULE Prov:JAYJAY HARRY DO 03/11/18 Tramadol Hcl (TRAMADOL HCL) 50 Mg Tablet, 50 MG PO Q6H Y for PAIN, #20 TAB 0 Refills Prov:JAYJAY HARRY DO 03/11/18 Oxycodone Hcl/Acetaminophen (PERCOCET 5-325 MG TABLET) 1 Each Tablet, 1 EACH PO Q6H for PAIN, #9 TAB 0 Refills Prov:VERNON LAWS MD 02/12/18 Reported Medications Lidocaine (Lidocaine) 5 % Adh..patch 02/12/18 Lisinopril (LISINOPRIL) 5 Mg Tablet, 5 MG PO QDAY, TAB 02/12/18 Tizanidine Hcl (TIZANIDINE HCL) 2 Mg Capsule, 2 MG PO TID, CAPSULE 02/12/18 Amlodipine Besylate (AMLODIPINE BESYLATE) 10 Mg Tablet, 1 TAB PO QDAY, TAB 03/04/17 Paroxetine Hcl (PAROXETINE HCL) 30 Mg Tablet, 30 MG PO HS 08/12/16 Discontinued Scripts Ondansetron Hcl (ZOFRAN) 4 Mg Tablet, 4 MG PO Q8H for Nausea, #15 TAB 0 Refills Prov:VERNON LAWS MD 02/12/18 Oxycodone Hcl/Acetaminophen (PERCOCET 5-325 MG TABLET) 1 Each Tablet, 1 EACH PO Q4H Y for PAIN, #12 TAB 0 Refills Prov:YADIRA BASSETT MD 11/17/17 Hx Smoking: Yes (VAPOR) Smoking Status: Current: Every Day Smoker Exposure to Second Hand Smoke?: No Hx Substance Use Disorder: No Hx Alcohol Use: No Constitutional Vital Sign - Last 24 Hours 03/11/18 10:07 Temp 98.6 Pulse 83 Resp 20 B/P (MAP) 145/121 Pulse Ox 94 O2 Delivery Room Air Intake and Output 03/11/18 03/11/18 03/12/18 15:00 23:00 07:00 Intake Total 50 ml Balance 50 ml Physical Exam General Appearance: The patient is alert, has no immediate need for airway protection and no signs of toxicity. + uncomfortable due to pain Eyes: Pupils equal and round no pallor or injection. ENT, Mouth: Mucous membranes are moist. Respiratory: There are no retractions, lungs are clear to auscultation. Cardiovascular: Regular rate and rhythm. Gastrointestinal: Abdomen is soft and non tender, no masses, bowel sounds normal. Neurological: + headache, No focal neuro deficits, no bowel or bladder incontinence Skin: Warm and dry, no rashes. Musculoskeletal: Neck is supple + tender neck paraspinal musculature Extremities are nontender, nonswollen and have full range of motion. DIFFERENTIAL DIAGNOSIS: After history and physical exam differential diagnosis was considered for migraine, tension headache, fracture, concussion, contusion. Medical Decision Making EKG/Imaging Imaging HEAD W/O CONTRAST HISTORY: Headache COMPARISON STUDIES: 02/13/2018 TECHNIQUE: Contiguous axial images were obtained from the skull base to the vertex. One of the following dose optimization techniques was utilized in the performance of this exam: Automated exposure control; adjustment of the mA and/ or kV according to the patient's size; or use of an iterative reconstruction technique. Specific details can be referenced in the facility's radiology CT exam operational policy. FINDINGS: Hemorrhage: Negative Ventricles / sulci / fissures: Negative Masses / midline shift: Negative White matter: Negative Dewitt-white differentiation: Negative Extra-axial spaces: Negative Bones and skull base: Negative Visualized mastoid air cells / paranasal sinuses: Negative IMPRESSION: 1. Unremarkable non-contrast head CT. No evidence for acute intracranial hemorrhage, mass or acute ischemia.C-SPINE W/O CONTRAST HISTORY: Neck pain COMPARISON STUDIES: none TECHNIQUE: Axial images were obtained from the skull base through the upper thoracic spine without intravenous contrast. Coronal and sagittal reformatted images were obtained from the axial source data. One of the following dose optimization techniques was utilized in the performance of this exam: Automated exposure control; adjustment of the mA and/ or kV according to the patient's size; or use of an iterative reconstruction technique. Specific details can be referenced in the facility's radiology CT exam operational policy. FINDINGS: Pre-vertebral soft tissues: Negative Alignment: negative Vertebral bodies: Endplate degenerative changes are noted. Posterior elements: Negative Disc Spaces: Negative Visualized soft tissues anterior neck: Negative Visualized lung / mediastinum: Negative Some polypoid mucosal thickening in the left sphenoid sinus is noted. IMPRESSION: 1. No evidence for an acute fracture of the cervical spine. 2. Mild degenerative changes are noted. Exam type: 2 views lumbar spine History: fall Comparison: 03/08/2018. Findings: There is no acute fracture of lumbar spine. Patient is osteopenic with mild endplate degenerative changes. SI joints demonstrate degenerative changes. Calcifications in the right hemipelvis appear to be in the buttock and may represent granulomas. IMPRESSION: 1. Degenerative changes and mild osteopenia but no acute fracture. ED Course/Re-evaluation ED Course Immunization is a 53-year-old female here with complaints of headache, neck and low back pain status post fall several days ago steps. Patient reports that she has a history of migraines and has been taking ibuprofen without relief of symptoms. Due to the fall, patient had a CT scan of the head and C-spine which were negative for intracranial bleeding or fractures. X-rays of the L-spine showed no acute fractures or dislocations. Patient was given Benadryl, normal saline bolus, Reglan, magnesium with significant relief of symptoms. I discussed the findings with the patient and give her prescription for naproxen and tramadol until she is able to follow up with her family doctor. Patient was stable at time of discharge. Decision to Disposition Date: Mar 11, 2018 Decision to Disposition Time: 13:21 Depart Departure Latest Vital Signs Vital Signs Date Time Temp Pulse Resp B/P (MAP) Pulse Ox O2 Delivery O2 Flow Rate FiO2 03/11/18 10:07 98.6 83 20 145/121 94 Room Air Impression: Primary Impression: Migraine Additional Impression: Musculoskeletal back pain Condition: Improved Disposition: HOME OR SELF-CARE New Scripts Naproxen Sodium (ALEVE) 220 Mg Capsule 440 MG PO TID for 10 Days, #60 CAPSULE Prov: JAYJAY HARRY DO 03/11/18 Tramadol Hcl (TRAMADOL HCL) 50 Mg Tablet 50 MG PO Q6H Y for PAIN, #20 TAB 0 Refills Prov: JAYJAY HARRY DO 03/11/18 Patient Instructions: Musculoskeletal Pain (ED) Additional Instructions: You may take 440 mg of naproxen every 6 hours as needed for pain control. You may take 1 tablet tramadol 6 hours as needed for pain. Please follow up with her family doctor in the next week. He is return promptly if you develop worsening pain, headaches, blurred vision, nausea, vomiting. Problem Qualifiers JAYJAY HARRY DO Mar 11, 2018 10:06
[2018-03-11] MEDS ORDERED: diphenhydrAMINE 50 MG/ML VIAL IVP ONE (10:50)
[2018-03-11] MEDS ORDERED: MAGNESIUM SUL* 2 GM/50 ML IVPB 50 ML IVPB ONE (10:50)
[2018-03-11] MEDS ORDERED: METOCLOPRAMIDE 10 MG/2 ML SDV IVP ONE (10:50)
[2018-03-11] MEDS ORDERED: NS(*) 0.9% 1000 ML BAG 1,000 ML IV ONE (10:50)
[2018-03-11] MEDS ORDERED: KETOROLAC 30 MG/ML VIAL IVP ONE (10:50)
[2018-03-11 12:00] VITALS: BP 124/75
--- NOTE | 2018-03-11 12:47 | RADIOLOGY IMAGING REPORT ---
FACILITY: [facility] [place] PATIENT NAME: Veronica Rosario : 1965 MR: [id number] V: [id number] EXAM DATE: ORDERING PHYSICIAN: JAYJAY HARRY TECHNOLOGIST: Location: [facility] Patient: Veronica Rosario : 1965 Visit/Account:[id number] Date of Sevice: 03/11/2018 C-SPINE W/O CONTRAST HISTORY: Neck pain COMPARISON STUDIES: none TECHNIQUE: Axial images were obtained from the skull base through the upper thoracic spine without i ntravenous contrast. Coronal and sagittal reformatted images were obtained from the axial source data . One of the following dose optimization techniques was utilized in the performance of this exam: Autom ated exposure control; adjustment of the mA and/or kV according to the patient's size; or use of an i terative reconstruction technique. Specific details can be referenced in the facility's radiology C T exam operational policy. FINDINGS: Pre-vertebral soft tissues: Negative Alignment: negative Vertebral bodies: Endplate degenerative changes are noted. Posterior elements: Negative Disc Spaces: Negative Visualized soft tissues anterior neck: Negative Visualized lung / mediastinum: Negative Some polypoid mucosal thickening in the left sphenoid sinus is noted. IMPRESSION: 1. No evidence for an acute fracture of the cervical spine. 2. Mild degenerative changes are noted. Report Dictated By: Madan Medellin MD at 03/11/2018 12:40 PM Report E-Signed By: Madan Medellin MD at 03/11/2018 12:44 PM WSN:[email or web address]
--- NOTE | 2018-03-11 12:47 | RADIOLOGY IMAGING REPORT ---
FACILITY: [facility] - [place] PATIENT NAME: Veronica Rosario : 1965 MR: [id number] V: [id number] EXAM DATE: ORDERING PHYSICIAN: JAYJAY HARRY TECHNOLOGIST: [place] [facility] [place] : 1965 Visit/Account:[id number] Date of Sevice: 03/11/2018 HEAD W/O CONTRAST HISTORY: Headache COMPARISON STUDIES: 02/13/2018 TECHNIQUE: Contiguous axial images were obtained from the skull base to the vertex. One of the following dose optimization techniques was utilized in the performance of this exam: Autom ated exposure control; adjustment of the mA and/or kV according to the patient's size; or use of an i terative reconstruction technique. Specific details can be referenced in the facility's radiology C T exam operational policy. FINDINGS: Hemorrhage: Negative Ventricles / sulci / fissures: Negative Masses / midline shift: Negative White matter: Negative Dewitt-white differentiation: Negative Extra-axial spaces: Negative Bones and skull base: Negative Visualized mastoid air cells / paranasal sinuses: Negative IMPRESSION: 1. Unremarkable non-contrast head CT. No evidence for acute intracranial hemorrhage, mass or acute i schemia. Report Dictated By: Madan Medellin MD at 03/11/2018 12:38 PM Report E-Signed By: Madan Medellin MD at 03/11/2018 12:44 PM WSN:[id number]
--- NOTE | 2018-03-11 12:49 | RADIOLOGY IMAGING REPORT ---
[place] [facility] [place]: Veronica Rosario : 1965 MR: [id number] V: [id number] EXAM DATE: ORDERING PHYSICIAN: JAYJAY HARRY [place]CHNOLOG[place]: [place] [facility] [place] : 1965 Visit/Account:[id number] Date of Sevice: 03/11/2018 Exam type: 2 views lumbar spine History: fall Comparison: 03/08/2018. Findings: There is no acute fracture of lumbar spine. Patient is osteopenic with mild endplate degenerative baldomero nges. SI joints demonstrate degenerative changes. Calcifications in the right hemipelvis appear to be in th e buttock and may represent granulomas. IMPRESSION: 1. Degenerative changes and mild osteopenia but no acute fracture. Report Dictated By: Madan Medellin MD at 03/11/2018 12:44 PM Report E-Signed By: Madan Medellin MD at 03/11/2018 12:46 PM WSN:[email or web address]
[2018-03-11] MEDS ORDERED: NAPR220C12 PO (13:19)
[2018-03-11] MEDS ORDERED: TRAM-420 PO (13:19)
== END 2018-03-11 13:36 | disposition home or self-care (01) ==
LOC: ER 10:06
DX: G43.909 Migraine, unspecified, not intractable, without status migrainosus (principal); M54.5 Low back pain; F17.210 Nicotine dependence, cigarettes, uncomplicated
CPT/HCPCS: 70450; 72100; 72125; 96365; 96375; 99285; J1200; J1885; J2765; J3475; J7030

== ENCOUNTER 2018-04-28 08:05 | Emergency (ER) | payer SELFPAY ==
[2016-01-05 09:26] VITALS: Wt 89.4 kg
[~2018-04-28 08:05] MED LIST changes: +NAPR220C12 PO
[2018-04-28] MEDS ORDERED: NS(*) 0.9% 1000 ML BAG 1,000 ML IV ONE (08:18)
[2018-04-28] MEDS ORDERED: KETOROLAC 30 MG/ML VIAL IVP ONE (08:20)
[2018-04-28] MEDS ORDERED: METOCLOPRAMIDE 10 MG/2 ML SDV IVP ONE (08:20)
[2018-04-28] MEDS ORDERED: diphenhydrAMINE 50 MG/ML VIAL IVP ONE (08:20)
[2018-04-28 08:27] LABS: PLATELET COUNT, AUTOMATED 298 K/uL (150-450)
--- NOTE | 2018-04-28 08:31 | ER Report ---
History and Physical Time Seen By MD: 08:20 Hx. of Stated Complaint: MIGRAINE SINCE 0 HPI/ROS CHIEF COMPLAINT: Migraine headache HISTORY OF PRESENT ILLNESS: Patient is a 53-year-old female who presents to the emergency department with what she describes as her typical migraine headache that was refractory to ibuprofen at home. Patient states symptoms began around 4 :30 this morning. They are typical of her usual headache. She states that there are no unusual or uncharacteristic features with regard to the headache. She has associated nausea and has been dry heaving. She denies any neck pain or fever or chills. She denies chest pain or shortness of breath. She denies any abdominal pain. Positive scotomata REVIEW OF SYSTEMS: Constitutional: No fever, no chills. Eyes: No discharge. [place] ENT: No sore throat. Cardiovascular: No chest pain, no palpitations. Respiratory: No cough, no shortness of breath. Gastrointestinal: No abdominal pain, nausea with dry heaves Genitourinary: No hematuria. Musculoskeletal: No back pain. Skin: No rashes. Neurological: Typical migraine headache Allergies: Coded Allergies: amitriptyline (Verified Allergy, Severe, SWELLING, 03/08/18) Penicillins (Verified Allergy, Intermediate, SWELLING, 03/08/18) indomethacin (Verified Allergy, Intermediate, 03/08/18) metaxalone (Verified Allergy, Intermediate, ANXIETY, PACING, FEELS SWELLING IN THROAT, 03/08/18) trazodone (Verified Allergy, Intermediate, SWELLING, 03/08/18) amoxicillin (Verified Allergy, Unknown, 03/08/18) baclofen (Verified Allergy, Unknown, 03/08/18) cyclobenzaprine (Verified Allergy, Unknown, 03/08/18) Uncoded Allergies: SOME CHOLESTEROL MED (Adverse Reaction, Mild, 06/01/11) Home Meds Active Scripts Metoclopramide Hcl (REGLAN) 10 Mg Tablet, 10 MG PO Q6H for Nausea, #20 TAB 0 Refills Prov:VERNON LAWS MD 04/28/18 Naproxen Sodium (ALEVE) 220 Mg Capsule, 440 MG PO TID for 10 Days, #60 CAPSULE Prov:JAYJAY HARRY DO 03/11/18 Reported Medications Lidocaine (Lidocaine) 5 % Adh..patch 02/12/18 Lisinopril (LISINOPRIL) 5 Mg Tablet, 5 MG PO QDAY, TAB 02/12/18 Tizanidine Hcl (TIZANIDINE HCL) 2 Mg Capsule, 2 MG PO TID, CAPSULE 02/12/18 Amlodipine Besylate (AMLODIPINE BESYLATE) 10 Mg Tablet, 1 TAB PO QDAY, TAB 03/04/17 Paroxetine Hcl (PAROXETINE HCL) 30 Mg Tablet, 30 MG PO HS 08/12/16 Discontinued Scripts Tramadol Hcl (TRAMADOL HCL) 50 Mg Tablet, 50 MG PO Q6H Y for PAIN, #20 TAB 0 Refills Prov:JAYJAY HARRY DO 03/11/18 Oxycodone Hcl/Acetaminophen (PERCOCET 5-325 MG TABLET) 1 Each Tablet, 1 EACH PO Q6H for PAIN, #9 TAB 0 Refills Prov:VERNON LAWS MD 02/12/18 Past Medical/Surgical History Past medical history for migraine headaches and hypertension. Hx Smoking: Yes (VAPOR) Smoking Status: Current: Every Day Smoker Exposure to Second Hand Smoke?: No Hx Substance Use Disorder: No Hx Alcohol Use: No Constitutional Vital Sign - Last 24 Hours 04/28/18 04/28/18 04/28/18 04/28/18 08:10 08:30 09:00 09:26 Temp 98.1 Pulse 66 66 62 62 Resp 18 B/P (MAP) 138/79 129/86 (100) 137/87 (104) 116/91 (99) Pulse Ox 94 93 93 93 O2 Delivery Room Air Intake and Output 04/28/18 04/28/18 04/29/18 15:00 23:00 07:00 Intake Total 1000 ml Balance 1000 ml Physical Exam General/Constitutional: Patient is awake, alert, nontoxic and in no acute respiratory distress. Head: Normocephalic and atraumatic. Eyes: Conjunctival clear, Pupils are equal and reactive to light. Extraocular muscles are intact and symmetrical. Sclera are clear and anicteric. Ears:External canals are clear. Tympanic membranes are clear with normal landmarks and light reflex. Nares: No rhinorrhea or bleeding. Turbinates are pink and moist. Oropharyngeal: Mucous membranes are moist. There is no pharyngeal erythema or exudate. There are no palatal petechiae. Uvula is midline and symmetrical. Neck: Supple, no adenopathy. Cardiovascular: Heart is regular rate and rhythm without audible murmurs, rubs or gallops. Pulmonary: Lungs are clear to auscultation bilaterally. There are no wheezes, rales, or rhonchi. Chest rise is symmetrical Abdomen: Soft, nontender, no guarding or peritoneal signs. Extremities: No gross deformities, No peripheral cyanosis. Able to move all 4 extremities. Neuro: Alert and oriented X3, Cranial nerves 2 thru 12 are intact and symmetrical. Skin: No rashes, skin is warm dry and well perfused. Medical Decision Making Data Points Result Diagram: 04/28/18 0821 04/28/18 0821 Laboratory Hematology Test 04/28/18 08:21 Red Blood Count 5.52 M/uL (4.17-5.56) Mean Corpuscular Volume 86.8 fL (80.0-96.0) Mean Corpuscular Hemoglobin 29.9 pg (26.0-33.0) Mean Corpuscular Hemoglobin Concent 34.5 g/dL (32.0-36.0) Red Cell Distribution Width 13.3 % (11.5-14.5) Mean Platelet Volume 8.9 fL (7.2-11.1) Neutrophils (%) (Auto) 75.3 % (39.4-72.5) Lymphocytes (%) (Auto) 17.2 % (17.6-49.6) Monocytes (%) (Auto) 4.1 % (4.1-12.4) Eosinophils (%) (Auto) 2.3 % (0.4-6.7) Basophils (%) (Auto) 1.1 % (0.3-1.4) Nucleated RBC Relative Count (auto) 0.0 /100WBC Neutrophils # (Auto) 6.7 K/uL (2.0-7.4) Lymphocytes # (Auto) 1.5 K/uL (1.3-3.6) Monocytes # (Auto) 0.4 K/uL (0.3-1.0) Eosinophils # (Auto) 0.2 K/uL (0.0-0.5) Basophils # (Auto) 0.1 K/uL (0.0-0.1) Nucleated RBC Absolute Count (auto) 0.00 K/uL Sodium Level 142 mmol/L (137-145) Potassium Level 4.2 mmol/L (3.5-5.0) Chloride Level 101 mmol/L (98-107) Carbon Dioxide Level 30 mmol/L (22-31) Blood Urea Nitrogen 10 mg/dl (7-18) Creatinine 0.60 mg/dl (0.52-1.04) Glomerular Filtration Rate Calc > 60.0 Random Glucose 118 mg/dl (75-110) Calcium Level 9.5 mg/dl (8.4-10.2) Total Bilirubin 0.5 mg/dl (0.2-1.3) Aspartate Amino Transf (AST/SGOT) 17 U/L (0-35) Alanine Aminotransferase (ALT/SGPT) 26 U/L (0-56) Alkaline Phosphatase 58 U/L (0-126) Total Protein 8.1 g/dl (6.3-8.2) Albumin 4.7 g/dl (3.5-5.0) Chemistry Test 04/28/18 08:21 White Blood Count 8.9 k/uL (4.5-11.0) Red Blood Count 5.52 M/uL (4.17-5.56) Hemoglobin 16.5 g/dL (12.0-16.0) Hematocrit 47.9 % (34.0-47.0) Mean Corpuscular Volume 86.8 fL (80.0-96.0) Mean Corpuscular Hemoglobin 29.9 pg (26.0-33.0) Mean Corpuscular Hemoglobin Concent 34.5 g/dL (32.0-36.0) Red Cell Distribution Width 13.3 % (11.5-14.5) Platelet Count 298 K/uL (150-450) Mean Platelet Volume 8.9 fL (7.2-11.1) Neutrophils (%) (Auto) 75.3 % (39.4-72.5) Lymphocytes (%) (Auto) 17.2 % (17.6-49.6) Monocytes (%) (Auto) 4.1 % (4.1-12.4) Eosinophils (%) (Auto) 2.3 % (0.4-6.7) Basophils (%) (Auto) 1.1 % (0.3-1.4) Nucleated RBC Relative Count (auto) 0.0 /100WBC Neutrophils # (Auto) 6.7 K/uL (2.0-7.4) Lymphocytes # (Auto) 1.5 K/uL (1.3-3.6) Monocytes # (Auto) 0.4 K/uL (0.3-1.0) Eosinophils # (Auto) 0.2 K/uL (0.0-0.5) Basophils # (Auto) 0.1 K/uL (0.0-0.1) Nucleated RBC Absolute Count (auto) 0.00 K/uL Glomerular Filtration Rate Calc > 60.0 Calcium Level 9.5 mg/dl (8.4-10.2) Total Bilirubin 0.5 mg/dl (0.2-1.3) Aspartate Amino Transf (AST/SGOT) 17 U/L (0-35) Alanine Aminotransferase (ALT/SGPT) 26 U/L (0-56) Alkaline Phosphatase 58 U/L (0-126) Total Protein 8.1 g/dl (6.3-8.2) Albumin 4.7 g/dl (3.5-5.0) ED Course/Re-evaluation Clinical Indication for ER IV: Hydration, IV Access ED Course 04/28/2018 8:25:29 am patient with typical migraine symptoms normal neurological exam. Review of [place] in [place] substance websites reveal the patient has had multiple narcotic scripts filled Specifically she has had most recently filled 24 oxycodone which was filled on April 23. She further had 84 oxycodone filled on April 05 again 84 oxycodone filled on March 15. 56 oxycodone filled February 28, 56 oxycodone filled February 14, 56 oxycodone filled February 02, oxycodone filled January 28 these prescriptions were all filled in [place]. She had 20 tramadol filled March 11, oxycodone filled February 12, 200 ML's of Cheratussin before meals filled February 11 oxycodone filled November 17 this was from the [place] prescription website. Patient isn't on our watch list for narcotic abuse. I did discuss with her nurse strategic account manager consideration for moving her to a treatment plan. Our plan will be to treat patient with IV Toradol, IV Reglan and Benadryl. We'll check CBC CMP we will also give IV fluids. Re-evaluation 04/28/2018 8:50:36 am mild improvement headache currently now 8 out of 10 in intensity after IV Toradol Reglan and Benadryl. Plan at this time will be 10 mg of IM Zyprexa. 04/28/2018 9:17:39 am patient improved after IM Zyprexa. We'll give a dose of IV Decadron to prevent rebound headache we will send the patient home on oral Reglan. Decision to Disposition Date: Apr 28, 2018 Decision to Disposition Time: 09:18 Depart Departure Latest Vital Signs Vital Signs Date Time Temp Pulse Resp B/P (MAP) Pulse Ox O2 Delivery O2 Flow Rate FiO2 04/28/18 09:26 62 116/91 (99) 93 04/28/18 08:10 98.1 18 Room Air Impression: Primary Impression: Migraine Condition: Improved Disposition: HOME OR SELF-CARE New Scripts Metoclopramide Hcl (REGLAN) 10 Mg Tablet 10 MG PO Q6H for Nausea, #20 TAB 0 Refills Prov: VERNON LAWS MD 04/28/18 Patient Instructions: Migraine Headache (ED) Problem Qualifiers Primary Impression: Migraine Migraine type: with aura Status migrainosus presence: without status migrainosus Intractability: not intractable Qualified Codes: G43.109 - Migraine with aura, not intractable, without status migrainosus VERNON LAWS MD Apr 28, 2018 08:31
[2018-04-28] MEDS ORDERED: WATER STERILE 10 ML VIAL IM ONLY ONE (08:50)
[2018-04-28] MEDS ORDERED: OLANZapine 10 MG VIAL IM ONLY ONE (08:50)
[2018-04-28] MEDS ORDERED: METO-734 PO (09:20)
[2018-04-28] MEDS ORDERED: DEXAMETHASONE SOD 4 MG/ML VIAL IVP ONE (09:25)
[2018-04-28 09:26] VITALS: BP 116/91
== END 2018-04-28 09:36 | disposition home or self-care (01) ==
LOC: ER 08:09
DX: G43.109 Migraine with aura, not intractable, without status migrainosus (principal)
CPT/HCPCS: 85025; 96361; 96372; 96374; 96375; 99284; A4216; J1100; J1200; J1885; J2765; J3490; J7030; 82040; 82247; 82310; 82374; 82435; 82565; 82947; 84075; 84132; 84155; 84295; 84450; 84460; 84520

== ENCOUNTER 2018-05-02 09:48 | Emergency (ER) | payer SELFPAY ==
[2016-01-05 09:26] VITALS: Wt 95.3 kg
[~2018-05-02 09:48] MED LIST changes: +METO-734 PO
--- NOTE | 2018-05-02 10:00 | ER Report ---
History and Physical Time Seen By MD: 10:00 HPI/ROS 53-year-old female presents to the emergency department complaining of back pain after a fall from a seated position this past weekend. The patient said she was having a picnic. She was sitting on a walk when she lost her balance and fell onto a rock that was behind her. She states that she now has back pain and is unable to take a deep breath. The incident was 48 hours ago. She is not taking any [id number] pain medications. She has no other complaints. Remainder of the 14 system rev: Yes Allergies: Coded Allergies: amitriptyline (Verified Allergy, Severe, SWELLING, 05/02/18) Penicillins (Verified Allergy, Intermediate, SWELLING, 05/02/18) indomethacin (Verified Allergy, Intermediate, 05/02/18) metaxalone (Verified Allergy, Intermediate, ANXIETY, PACING, FEELS SWELLING IN THROAT, 05/02/18) trazodone (Verified Allergy, Intermediate, SWELLING, 05/02/18) amoxicillin (Verified Allergy, Unknown, 05/02/18) baclofen (Verified Allergy, Unknown, 05/02/18) cyclobenzaprine (Verified Allergy, Unknown, 05/02/18) Uncoded Allergies: SOME CHOLESTEROL MED (Adverse Reaction, Mild, 06/01/11) Home Meds Active Scripts Ketorolac Tromethamine (KETOROLAC TROMETHAMINE) 10 Mg Tab, 10 MG PO Q6H Y for PAIN, #12 TAB 0 Refills Prov:KASHMIR KRISHNAMURTHY MD 05/02/18 Reported Medications Lidocaine (Lidocaine) 5 % Adh..patch 02/12/18 Lisinopril (LISINOPRIL) 5 Mg Tablet, 5 MG PO QDAY, TAB 02/12/18 Tizanidine Hcl (TIZANIDINE HCL) 2 Mg Capsule, 2 MG PO TID, CAPSULE 02/12/18 Amlodipine Besylate (AMLODIPINE BESYLATE) 10 Mg Tablet, 1 TAB PO QDAY, TAB 03/04/17 Paroxetine Hcl (PAROXETINE HCL) 30 Mg Tablet, 30 MG PO HS 08/12/16 Discontinued Scripts Metoclopramide Hcl (REGLAN) 10 Mg Tablet, 10 MG PO Q6H for Nausea, #20 TAB 0 Refills Prov:VERNON LAWS MD 04/28/18 Naproxen Sodium (ALEVE) 220 Mg Capsule, 440 MG PO TID for 10 Days, #60 CAPSULE Prov:JAYJAY HARRY DO 03/11/18 Tramadol Hcl (TRAMADOL HCL) 50 Mg Tablet, 50 MG PO Q6H Y for PAIN, #20 TAB 0 Refills Prov:JAYJAY HARRY DO 03/11/18 Oxycodone Hcl/Acetaminophen (PERCOCET 5-325 MG TABLET) 1 Each Tablet, 1 EACH PO Q6H for PAIN, #9 TAB 0 Refills Prov:VERNON LAWS MD 02/12/18 Reviewed Nurses Notes: Yes Old Medical Records Reviewed: Yes Hx Smoking: Yes (VAPOR) Smoking Status: Current: Every Day Smoker Exposure to Second Hand Smoke?: No Hx Substance Use Disorder: No Hx Alcohol Use: No Constitutional Vital Sign - Last 24 Hours 05/02/18 05/02/18 05/02/18 05/02/18 09:56 10:06 10:18 10:35 Temp 98.3 Pulse 80 82 Resp 22 B/P (MAP) 182/111 182/111 (134) 150/80 (103) Pulse Ox 94 94 O2 Delivery Room Air 05/02/18 05/02/18 05/02/18 05/02/18 10:45 10:48 11:00 11:15 Pulse 82 B/P (MAP) 144/94 (111) 141/86 (104) 153/96 (115) Pulse Ox 92 05/02/18 05/02/18 11:18 11:41 Pulse 71 B/P (MAP) 151/98 (115) Pulse Ox 91 Physical Exam General Appearance: Alert and oriented 3 in no apparent distress Eyes: Pupils equal and round no injection. Respiratory: Chest is non tender, lungs are clear to auscultation. Cardiac: regular rate and rhythm Gastrointestinal: Abdomen is soft and non tender, no masses, bowel sounds normal. Musculoskeletal: Diffuse tenderness to palpation of the thoracic and lumbar paraspinal regions of her back. No external signs of trauma to include ecchymosis or abrasions. Neck: Neck is supple and non tender. Extremities have full range of motion and are non tender. Skin: No rashes or lesions. DIFFERENTIAL DIAGNOSIS: After history and physical exam differential diagnosis was considered for pneumothorax, fractures, lung contusion, kidney injury Medical Decision Making EKG/Imaging Imaging X-ray: [location] was obtained. I viewed the images myself on the PACS system. My interpretation of the images is: []. [The radiologist interpretation had no clinically significant variation from this interpretation]. ED Course/Re-evaluation ED Course Uncomplicated low impact fall with no external signs of trauma. She has a normal chest x-ray without evidence of pneumothorax or rib fractures. The patient's pain improved with Toradol. I think this is just a chest contusion. She has no other complaints of pain. I counseled her to continue taking Tylenol or ibuprofen for pain. Decision to Disposition Date: May 02, 2018 Decision to Disposition Time: 11:32 Depart Departure Latest Vital Signs Vital Signs Date Time Temp Pulse Resp B/P (MAP) Pulse Ox O2 Delivery O2 Flow Rate FiO2 05/02/18 11:41 151/98 (115) 05/02/18 11:18 71 91 05/02/18 09:56 98.3 22 Room Air Impression: Primary Impression: Musculoskeletal back pain Condition: Improved Disposition: HOME OR SELF-CARE New Scripts Ketorolac Tromethamine (KETOROLAC TROMETHAMINE) 10 Mg Tab 10 MG PO Q6H Y for PAIN, #12 TAB 0 Refills Prov: KASHMIR KRISHNAMURTHY MD 05/02/18 Patient Instructions: Acute Low Back Pain (ED) KASHMIR KRISHNAMURTHY MD May 02, 2018 10:00
[2018-05-02] MEDS ORDERED: KETOROLAC 60 MG/2 ML VIAL IM ONE (10:15)
[2018-05-02] MEDS ORDERED: DIPHTH/TETANUS/ACEL. PERTUSSIS IM ONLY ONE (10:15)
--- NOTE | 2018-05-02 10:50 | RADIOLOGY IMAGING REPORT ---
FACILITY: [facility] [place] PATIENT NAME: Veronica Rosario : 1965 MR: [id number] V: [id number] EXAM DATE: ORDERING PHYSICIAN: KASHMIR KRISHNAMURTHY TECHNOLOGIST: Location: [facility] [place] Patient: Veronica Rosario : 1965 Visit/Account:[id number] Date of Sevice: 05/02/2018 Exam type: CHEST PA AND LAT History: fall with sob Comparison: February 13, 2018. Findings: There is chronic elevation of the right hemidiaphragm and chronic linear scarring in the right lung b ase and left midlung field. There is no evidence of acute-appearing pulmonary consolidation, pleural effusions or pulmonary edema. No evidence of a pneumothorax or pneumomediastinum. The cardiac silh ouette is normal in size. There are surgical clips right upper quadrant abdomen. IMPRESSION: 1. Chronic elevation right hemidiaphragm and chronic linear scarring in the right lung base and left midlung field although no evidence of acute pulmonary consolidation or pneumothorax Report Dictated By: Bailey Woody MD at 05/02/2018 10:44 AM Report E-Signed By: Bailey Woody MD at 05/02/2018 10:45 AM WSN:[email or web address]
[2018-05-02] MEDS ORDERED: KET10 PO (11:33)
[2018-05-02 11:41] VITALS: BP 151/98
== END 2018-05-02 11:42 | disposition home or self-care (01) ==
LOC: ER 10:02
DX: M54.5 Low back pain (principal); M54.6 Pain in thoracic spine
CPT/HCPCS: 71046; 90471; 90715; 96372; 99283; J1885

== ENCOUNTER 2018-05-08 10:29 | Emergency (ER) | payer SELFPAY ==
[2016-01-05 09:26] VITALS: Wt 95.3 kg
--- NOTE | 2018-05-08 10:33 | ER Report ---
History and Physical Time Seen By MD: 10:32 HPI/ALVA CHIEF COMPLAINT: Back pain HISTORY OF PRESENT ILLNESS: This is the 8th visit since 11/17/2017 7 out of the last 8 visits were for pain related complaints. Patient is on the narcotic watch list. I believe we have flag this patient for review for possible treatment plan. Patient was seen on May 02 for musculoskeletal back pain after fall. Electronic medical record was reviewed for this patient at that time. She stated that she had a fall 2 days prior to being in an emergency department. She states she was complaining of back pain after a fall from a seated position. She reported pain to her back and difficulty taking a deep breath. Patient was seen by a different provider she was found to have diffuse tenderness to the thoracic and lumbar paraspinal area without external signs of trauma, ecchymosis or abrasion. Because of the difficulty breathing and chest x- ray was performed which showed no evidence of pneumothorax or rib fracture. Patient was treated with Toradol and had improvement of her pain. Electronic medical prescription monitoring plan from [place] was reviewed the patient's last narcotic prescription was for tramadol 50 mg tablets quantity 20 which was filled on 03/11/2018; the last prescription filled in [place] was for tablets of 24 oxycodone 5 mg strength which was filled on 04/23/2018. Patient states that she has completely healed from her fall that occurred on 04/30/2018. She states that she was "feeling good" and she decided to shampoo her mother's rug. Now she is complaining of diffuse spinal pain. A new falls. She denies fevers or chills. She states that movement makes the pain worse but she is unable to find a comfortable position. She denies any saddle anesthesia she denies any incontinence of urine or stool. She denies any retention of urine or stool. REVIEW OF SYSTEMS: Respiratory: No cough, no dyspnea. Cardiovascular: No chest pain, no palpitations. Gastrointestinal: No vomiting, no abdominal pain. Musculoskeletal: Thoracic and lumbar back pain Urinary: No dysuria, no incontinence nor retention Allergies: Coded Allergies: amitriptyline (Verified Allergy, Severe, SWELLING, 05/08/18) Penicillins (Verified Allergy, Intermediate, SWELLING, 05/08/18) indomethacin (Verified Allergy, Intermediate, 05/08/18) metaxalone (Verified Allergy, Intermediate, ANXIETY, PACING, FEELS SWELLING IN THROAT, 05/08/18) trazodone (Verified Allergy, Intermediate, SWELLING, 05/08/18) amoxicillin (Verified Allergy, Unknown, 05/08/18) baclofen (Verified Allergy, Unknown, 05/08/18) cyclobenzaprine (Verified Allergy, Unknown, 05/08/18) Uncoded Allergies: SOME CHOLESTEROL MED (Adverse Reaction, Mild, 06/01/11) Home Meds Active Scripts Pantoprazole Sodium (PANTOPRAZOLE SODIUM) 40 Mg Tablet.dr, 40 MG PO BID, #20 TAB.SR 0 Refills take while using oral toradol Prov:VERNON LAWS MD 05/08/18 Ketorolac Tromethamine (KETOROLAC TROMETHAMINE) 10 Mg Tab, 10 MG PO Q6H Y for PAIN, #20 TAB 0 Refills Prov:VERNON LAWS MD 05/08/18 Reported Medications Lidocaine (Lidocaine) 5 % Adh..patch 02/12/18 Lisinopril (LISINOPRIL) 5 Mg Tablet, 5 MG PO QDAY, TAB 02/12/18 Tizanidine Hcl (TIZANIDINE HCL) 2 Mg Capsule, 2 MG PO TID, CAPSULE 02/12/18 Amlodipine Besylate (AMLODIPINE BESYLATE) 10 Mg Tablet, 1 TAB PO QDAY, TAB 03/04/17 Paroxetine Hcl (PAROXETINE HCL) 30 Mg Tablet, 30 MG PO HS 08/12/16 Discontinued Scripts Ketorolac Tromethamine (KETOROLAC TROMETHAMINE) 10 Mg Tab, 10 MG PO Q6H Y for PAIN, #12 TAB 0 Refills Prov:KASHMIR KRISHNAMURTHY MD 05/02/18 Metoclopramide Hcl (REGLAN) 10 Mg Tablet, 10 MG PO Q6H for Nausea, #20 TAB 0 Refills Prov:VERNON LAWS MD 04/28/18 Naproxen Sodium (ALEVE) 220 Mg Capsule, 440 MG PO TID for 10 Days, #60 CAPSULE Prov:JAYJAY HARRY DO 03/11/18 Past Medical/Surgical History Patient is on chronic pain medications history of hypertension, history of anxiety Hx Smoking: Yes (VAPOR) Smoking Status: Current: Every Day Smoker Exposure to Second Hand Smoke?: No Hx Substance Use Disorder: No Hx Alcohol Use: No Constitutional Vital Sign - Last 24 Hours 05/08/18 05/08/18 05/08/18 05/08/18 10:33 10:34 10:44 10:59 Temp 97.2 Pulse 83 81 Resp 20 B/P (MAP) 187/134 (151) 187/134 Pulse Ox 84 95 O2 Delivery Room Air O2 Flow Rate 2.0 05/08/18 05/08/18 05/08/18 05/08/18 11:00 11:29 11:30 11:59 Pulse 81 77 B/P (MAP) 177/98 (124) 157/108 (124) Pulse Ox 95 92 05/08/18 05/08/18 05/08/18 12:00 12:05 12:53 Pulse 77 B/P (MAP) 154/94 (114) 139/93 (108) Pulse Ox 95 Physical Exam General appearance: Patient is tearful and crying Back: Thoracic spine diffuse tenderness to left and right paraspinal area as well as midline Lumbar spine diffuse tenderness to right left paraspinal area as well as midline Gastroinal: Abdomen is soft, non tender, no masses.. Skin: No lesions and no rashes. Neurological: Motor function: leg strength normal and symmetric for both legs Sensory function: normal for all leg dermatomes. Straight leg raise negative to 70 degrees. Reflexes normal bilaterally on legs. [ ] DIFFERENTIAL DIAGNOSIS: After history and physical exam differential diagnosis was considered for back pain including muscular strain, herniated disc, intra- abdominal and renal causes. Medical Decision Making EKG/Imaging Imaging FACILITY: [facility] PATIENT NAME: Veronica Rosario : 1965 MR: [id number] V: [id number] EXAM DATE: ORDERING PHYSICIAN: VERNON LAWS TECHNOLOGIST: Location: [facility] Patient: Veronica Rosario : 1965 Visit/Account:[id number] Date of Sevice: 05/08/2018 Exam type: LUMBAR SPINE 2 OR 3 VIEW History: pain Comparison: March 11, 2018. Findings: There are five nonrib-bearing lumbar-type vertebral bodies present. There is no evidence of acute fractures. There is a 3 mm anterior listhesis of L4 with respect L5 that was not apparent on the prior study there is mild disc space narrowing L5-S1. IMPRESSION: 1. Mild disc space narrowing L5-S1 3 mm anterior listhesis of L4 with respect L5 that was not apparent on the prior study. This could be on degenerative basis however correlation with potential trauma history suggested . Report Dictated By: Bailey Woody MD at 05/08/2018 12:01 PM Report E-Signed By: Bailey Woody MD at 05/08/2018 12:04 PM WSN:[email or web address] FACILITY: [facility] PATIENT NAME: Veronica Rosario : 1965 MR: [id number] V: [id number] EXAM DATE: ORDERING PHYSICIAN: VERNON LAWS TECHNOLOGIST: Location: [facility] Patient: Veronica Rosario : 1965 Visit/Account:[id number] Date of Sevice: 05/08/2018 Exam type: THORACIC SPINE 3 VIEWS History: pain Comparison: Report from a prior thoracic spine series dated January 01, 2016 is available although the actual images are not. Findings: There are mild multilevel spondylotic changes of the thoracic spine. There is no evidence of acute fractures or subluxations. IMPRESSION: 1. Mild multilevel spondylotic changes of the thoracic spine although no evidence of acute fractures or subluxations Report Dictated By: Bailey Woody MD at 05/08/2018 11:56 AM Report E-Signed By: Bailey Woody MD at 05/08/2018 12:01 PM WSN:[email or web address] ED Course/Re-evaluation ED Course 05/08/2018 10:58:42 am on physical exam patient appears to have hypalgesia to even light touch over the entire thoracic and lumbar spine. There are no palpable bony step-offs. Patient is able to flex at the hip as well as the knees. She is ambulatory. There is some concern about pain seeking given the review of the electronic medical record on this patient. 05/08/2018 11:40:50 am awaiting official read of thoracic lumbar x-rays. Patient still crying and anxious she is curled up in the position lying on her knees rocking back and forth. I explained to her the plan at this time will be to perform trigger point injections using long-acting benzocaine. I further stated that we will place her on oral Toradol and because she had some stomach upset will put her on oral Prilosec with the Toradol. I encouraged her to follow up with orthopedics and we'll give her the contact number of Dr. Jacek Neumann for evaluation of her neck pain and history of herniated disks. I do have concerns that the patient may be pain education seeking. [facility] substance list shows numerous prescriptions for narcotic pain medications filled over the past few months. She also feels these prescriptions with different providers and multiple pharmacies in different [place]. I do have concern the patient may have opiate-induced hypalgesia aced on the fact of she is on chronic opiates and has hypersensitive to even light touch over certain areas during her physical exam. I do believe the patient would benefit from having an opiate treatment plan with the hospital. I did discuss this with the ED nursing car supervisor. Procedure 05/08/2018 12:28:47 pm 6 trigger point injections were performed. Two along the lumbar sacroiliac area bilaterally and then 2 at T10 and T10 on the right paraspinal region. Patient did experience some procedural nausea and retching will give 4 of oral Zofran at this time. Decision to Disposition Date: May 08, 2018 Decision to Disposition Time: 12:39 Depart Departure Latest Vital Signs Vital Signs Date Time Temp Pulse Resp B/P (MAP) Pulse Ox O2 Delivery O2 Flow Rate FiO2 05/08/18 12:53 139/93 (108) 05/08/18 12:05 77 95 05/08/18 10:44 2.0 05/08/18 10:34 97.2 20 Room Air Impression: Primary Impression: Musculoskeletal back pain Condition: Improved Disposition: HOME OR SELF-CARE Referrals: JACEK NEUMANN MD 2 Weeks for evaluation of chronic back pain New Scripts Pantoprazole Sodium (PANTOPRAZOLE SODIUM) 40 Mg Tablet. 40 MG PO BID, #20 TAB.SR 0 Refills take while using toradol Prov: VERNON LAWS MD 05/08/18 Ketorolac Tromethamine (KETOROLAC TROMETHAMINE) 10 Mg Tab 10 MG PO Q6H Y for PAIN, #20 TAB 0 Refills Prov: VERNON LAWS MD 05/08/18 Patient Instructions: Acute Low Back Pain (ED) Additional Instructions: Rest for the next 24 hours. Please review the handout on trigger point injections for information how to take care of herself after the injections that were performed today. Take your Toradol orally as directed for pain. It is recommended that you also take your Protonix twice a day while on the Toradol to decrease the likelihood of any gastrointestinal upset You were given the contact information for Dr. Jacek Neumann who is a appraisal specialist is recommended to schedule a follow-up appointment with him. VERNON LAWS MD May 08, 2018 10:33
[2018-05-08] MEDS ORDERED: KETOROLAC 60 MG/2 ML VIAL IM ONE (11:00)
--- NOTE | 2018-05-08 12:05 | RADIOLOGY IMAGING REPORT ---
FACILITY: [facility] PATIENT NAME: Veronica Rosario : 1965 MR: [id number] V: [id number] EXAM DATE: ORDERING PHYSICIAN: VERNON LAWS TECHNOLOGIST: Location: [facility] Patient: Veronica Rosario : 1965 Visit/Account:[id number] Date of Sevice: 05/08/2018 Exam type: THORACIC SPINE 3 VIEWS History: pain Comparison: Report from a prior thoracic spine series dated January 01, 2016 is available although the actual images are not. Findings: There are mild multilevel spondylotic changes of the thoracic spine. There is no evidence of acute f ractures or subluxations. IMPRESSION: 1. Mild multilevel spondylotic changes of the thoracic spine although no evidence of acute fractures or subluxations Report Dictated By: Bailey Woody MD at 05/08/2018 11:56 AM Report E-Signed By: Bailey Woody MD at 05/08/2018 12:01 PM WSN:[email or web address]
--- NOTE | 2018-05-08 12:07 | RADIOLOGY IMAGING REPORT ---
FACILITY: [facility] PATIENT NAME: Veronica Rosario : 1965 MR: [id number] V: [id number] EXAM DATE: ORDERING PHYSICIAN: VERNON LAWS TECHNOLOGIST: Location: [facility] Patient: Veronica Rosario : 1965 Visit/Account:[id number] Date of Sevice: 05/08/2018 Exam type: LUMBAR SPINE 2 OR 3 VIEW History: pain Comparison: March 11, 2018. Findings: There are five nonrib-bearing lumbar-type vertebral bodies present. There is no evidence of acute fr actures. There is a 3 mm anterior listhesis of L4 with respect L5 that was not apparent on the prior study there is mild disc space narrowing L5-S1. IMPRESSION: 1. Mild disc space narrowing L5-S1 3 mm anterior listhesis of L4 with respect L5 that was not apparent on the prior study. This could b e on degenerative basis however correlation with potential trauma history suggested . Report Dictated By: Bailey Woody MD at 05/08/2018 12:01 PM Report E-Signed By: Bailey Woody MD at 05/08/2018 12:04 PM WSN:[email or web address]
[2018-05-08] MEDS ORDERED: ONDANSETRON 4 MG ODT TH SL ONE (12:30)
[2018-05-08] MEDS ORDERED: KET10 PO ×2 (12:32→13:13)
[2018-05-08] MEDS ORDERED: PANT40TA65 PO ×2 (12:32→13:13)
[2018-05-08] MEDS ORDERED: ONDANSETRON 4 MG ODT TABDP SL ONE (12:35)
[2018-05-08 12:53] VITALS: BP 139/93
== END 2018-05-08 12:57 | disposition home or self-care (01) ==
LOC: ER 10:36
DX: M54.5 Low back pain (principal); M54.6 Pain in thoracic spine
CPT/HCPCS: 72072; 72100; 96372; 99284; J1885; S0119

== ENCOUNTER 2018-05-09 06:42 | Emergency (ER) | payer SELFPAY ==
[2016-01-05 09:26] VITALS: Wt 95.3 kg
[~2018-05-09 06:42] MED LIST changes: +PANT40TA65 PO
[2018-05-09] MEDS ORDERED: ONDANSETRON 4 MG/2 ML VIAL ONE (06:55)
[2018-05-09] MEDS ORDERED: NS(*) 0.9% 1000 ML BAG 1,000 ML IV ONE ×2 (07:00→07:08)
[2018-05-09] MEDS ORDERED: METOCLOPRAMIDE 10 MG/2 ML SDV IVP ONE (07:10)
[2018-05-09] MEDS ORDERED: diphenhydrAMINE 50 MG/ML VIAL IVP ONE (07:10)
[2018-05-09] MEDS ORDERED: ACETAMINOPHEN(*)1000 MG/100 ML 100 ML IVPB ONE (07:10)
--- NOTE | 2018-05-09 07:17 | ER Report ---
History and Physical Time Seen By MD: 07:12 Hx. of Stated Complaint: migrain since 11pm last night. feels different than other ones. has n/v. started in her neck. was here yesterday for back pain HPI/ROS CHIEF COMPLAINT: Migraine headache HISTORY OF PRESENT ILLNESS: Patient is a 52-year-old female who returns to the emergency department now with complaint of migraine. Please note that since November 17 this is the 9th visit in the emergency department 8 of which were for pain related complaints. Patient was seen for migraine on March 11 again on April 28 and now on May 09. Patient states that this is similar to prior migraines; whenever she states that it is radiating into her neck which is a new feature. Patient was seen yesterday in the emergency department by myself for musculoskeletal back pain. She had involvement of both paraspinal muscle groups. She at that time received trigger point injections with success. She now reports nausea and migraine headache. She denies fevers or chills. She denies any head injury. As noted before patient is on our narcotic watch list. I have serious concerns at this point that the patient is pain medicine seeking. Review of [place] and [place] controlled prescription medication list shows that the patient takes chronic opiates. I also feel that the patient may be experiencing opiate-induced hyperalgesia. In that minimal stimulus causes significant pain to her. REVIEW OF SYSTEMS: Constitutional: No fever or chills Eyes: Photophobia ENT: No sore throat. Cardiovascular: No chest pain, no palpitations. Respiratory: No cough, no shortness of breath. Gastrointestinal: Nausea with retching no abdominal pain Genitourinary: No hematuria. Musculoskeletal: No back pain. Neck pain bilaterally Skin: No rashes. Neurological: Migraine headache Allergies: Coded Allergies: amitriptyline (Verified Allergy, Severe, SWELLING, 05/09/18) Penicillins (Verified Allergy, Intermediate, SWELLING, 05/09/18) indomethacin (Verified Allergy, Intermediate, 05/09/18) metaxalone (Verified Allergy, Intermediate, ANXIETY, PACING, FEELS SWELLING IN THROAT, 05/09/18) trazodone (Verified Allergy, Intermediate, SWELLING, 05/09/18) amoxicillin (Verified Allergy, Unknown, 05/09/18) baclofen (Verified Allergy, Unknown, 05/09/18) cyclobenzaprine (Verified Allergy, Unknown, 05/09/18) Uncoded Allergies: SOME CHOLESTEROL MED (Adverse Reaction, Mild, 06/01/11) Home Meds Active Scripts Pantoprazole Sodium (PANTOPRAZOLE SODIUM) 40 Mg Tablet.dr, 40 MG PO BID, #20 TAB.SR 0 Refills take while using toradol Prov:VERNON LAWS MD 05/08/18 Ketorolac Tromethamine (KETOROLAC TROMETHAMINE) 10 Mg Tab, 10 MG PO Q6H Y for PAIN, #20 TAB 0 Refills Prov:VERNON LAWS MD 05/08/18 Reported Medications Lidocaine (Lidocaine) 5 % Adh..patch 02/12/18 Lisinopril (LISINOPRIL) 5 Mg Tablet, 5 MG PO QDAY, TAB 02/12/18 Tizanidine Hcl (TIZANIDINE HCL) 2 Mg Capsule, 2 MG PO TID, CAPSULE 02/12/18 Amlodipine Besylate (AMLODIPINE BESYLATE) 10 Mg Tablet, 1 TAB PO QDAY, TAB 03/04/17 Paroxetine Hcl (PAROXETINE HCL) 30 Mg Tablet, 30 MG PO HS 08/12/16 Discontinued Scripts Pantoprazole Sodium (PANTOPRAZOLE SODIUM) 40 Mg Tablet.dr, 40 MG PO BID, #20 TAB.SR 0 Refills take while using oral toradol Prov:VERNON LAWS MD 05/08/18 Ketorolac Tromethamine (KETOROLAC TROMETHAMINE) 10 Mg Tab, 10 MG PO Q6H Y for PAIN, #20 TAB 0 Refills Prov:VERNON LAWS MD 05/08/18 Ketorolac Tromethamine (KETOROLAC TROMETHAMINE) 10 Mg Tab, 10 MG PO Q6H Y for PAIN, #12 TAB 0 Refills Prov:KASHMIR KRISHNAMURTHY MD 05/02/18 Metoclopramide Hcl (REGLAN) 10 Mg Tablet, 10 MG PO Q6H for Nausea, #20 TAB 0 Refills Prov:VERNON LAWS MD 04/28/18 Naproxen Sodium (ALEVE) 220 Mg Capsule, 440 MG PO TID for 10 Days, #60 CAPSULE Prov:JAYJAY HARRY DO 03/11/18 Past Medical/Surgical History Past medical history for chronic back pain, migraines, hypertension Hx Smoking: Yes (VAPOR) Smoking Status: Current: Every Day Smoker Exposure to Second Hand Smoke?: No Hx Substance Use Disorder: No Hx Alcohol Use: No Constitutional Vital Sign - Last 24 Hours 05/09/18 05/09/18 05/09/18 05/09/18 06:42 06:46 06:46 06:52 Temp 98.6 Pulse ??? 81 Resp 26 B/P (MAP) 142/119 142/119 (127) Pulse Ox 85 O2 Delivery Room Air O2 Flow Rate 2.0 05/09/18 05/09/18 05/09/18 05/09/18 06:57 07:00 07:12 07:27 Pulse ??? 71 82 Resp 15 B/P (MAP) 149/94 (112) 145/82 (103) Pulse Ox 94 97 92 05/09/18 05/09/18 05/09/18 05/09/18 07:30 07:42 07:57 08:02 Pulse 75 65 74 Resp 20 8 B/P (MAP) 134/67 (89) Pulse Ox 80 81 05/09/18 05/09/18 05/09/18 08:17 08:30 08:32 Pulse 70 71 Resp 12 11 B/P (MAP) 120/69 (86) Pulse Ox 95 97 Intake and Output 05/09/18 05/09/18 05/10/18 15:00 23:00 07:00 Intake Total 1100 ml Balance 1100 ml Physical Exam General/Constitutional: Patient is awake, alert, nontoxic and in no acute respiratory distress. Head: Normocephalic and atraumatic. Eyes: Conjunctival clear, Pupils are equal and reactive to light. Extraocular muscles are intact and symmetrical. Sclera are clear and anicteric. Ears:External canals are clear. Tympanic membranes are clear with normal landmarks and light reflex. Nares: No rhinorrhea or bleeding. Turbinates are pink and moist. Oropharyngeal: Mucous membranes are moist. There is no pharyngeal erythema or exudate. There are no palatal petechiae. Uvula is midline and symmetrical. Neck: Supple, tenderness to palpation along the paraspinal muscle group eye laterally and trapezius muscle group bilaterally Cardiovascular: Heart is regular rate and rhythm without audible murmurs, rubs or gallops. Pulmonary: Lungs are clear to auscultation bilaterally. There are no wheezes, rales, or rhonchi. Chest rise is symmetrical Abdomen: Soft, nontender, no guarding or peritoneal signs. Extremities: No gross deformities, No peripheral cyanosis. Able to move all 4 extremities. Neuro: Alert and oriented X3, Cranial nerves 2 thru 12 are intact and symmetrical. Skin: No rashes, skin is warm dry and well perfused. Medical Decision Making Data Points Result Diagram: 05/09/18 0655 05/09/18 0655 Laboratory Hematology Test 05/09/18 06:55 Red Blood Count 5.40 M/uL (4.17-5.56) Mean Corpuscular Volume 87.6 fL (80.0-96.0) Mean Corpuscular Hemoglobin 29.6 pg (26.0-33.0) Mean Corpuscular Hemoglobin Concent 33.8 g/dL (32.0-36.0) Red Cell Distribution Width 13.8 % (11.5-14.5) Mean Platelet Volume 9.4 fL (7.2-11.1) Neutrophils (%) (Auto) % (39.4-72.5) Lymphocytes (%) (Auto) % (17.6-49.6) Monocytes (%) (Auto) % (4.1-12.4) Eosinophils (%) (Auto) % (0.4-6.7) Basophils (%) (Auto) % (0.3-1.4) Nucleated RBC Relative Count (auto) /100WBC Neutrophils # (Auto) K/uL (2.0-7.4) Lymphocytes # (Auto) K/uL (1.3-3.6) Monocytes # (Auto) K/uL (0.3-1.0) Eosinophils # (Auto) K/uL (0.0-0.5) Basophils # (Auto) K/uL (0.0-0.1) Nucleated RBC Absolute Count (auto) K/uL Neutrophils % (Manual) 68 % (39.4-72.5) Lymphocytes % (Manual) 14 % (17.6-49.6) Atypical Lymphocytes % 12 % Monocytes % (Manual) 5 % (4.1-12.4) Eosinophils % (Manual) 1 % (0.4-6.7) Basophils % (Manual) 0 % (0.3-1.4) Peripheral Blood Smear Yes Y/N Sodium Level 138 mmol/L (137-145) Potassium Level 4.7 mmol/L (3.5-5.0) Chloride Level 99 mmol/L (98-107) Carbon Dioxide Level 28 mmol/L (22-31) Blood Urea Nitrogen 22 mg/dl (7-18) Creatinine 0.50 mg/dl (0.52-1.04) Glomerular Filtration Rate Calc > 60.0 Random Glucose 134 mg/dl (75-110) Calcium Level 9.6 mg/dl (8.4-10.2) Total Bilirubin 0.6 mg/dl (0.2-1.3) Aspartate Amino Transf (AST/SGOT) 18 U/L (0-35) Alanine Aminotransferase (ALT/SGPT) 31 U/L (0-56) Alkaline Phosphatase 69 U/L (0-126) Total Protein 8.2 g/dl (6.3-8.2) Albumin 4.5 g/dl (3.5-5.0) Chemistry Test 05/09/18 06:55 White Blood Count 10.4 k/uL (4.5-11.0) Red Blood Count 5.40 M/uL (4.17-5.56) Hemoglobin 16.0 g/dL (12.0-16.0) Hematocrit 47.3 % (34.0-47.0) Mean Corpuscular Volume 87.6 fL (80.0-96.0) Mean Corpuscular Hemoglobin 29.6 pg (26.0-33.0) Mean Corpuscular Hemoglobin Concent 33.8 g/dL (32.0-36.0) Red Cell Distribution Width 13.8 % (11.5-14.5) Platelet Count 267 K/uL (150-450) Mean Platelet Volume 9.4 fL (7.2-11.1) Neutrophils (%) (Auto) % (39.4-72.5) Lymphocytes (%) (Auto) % (17.6-49.6) Monocytes (%) (Auto) % (4.1-12.4) Eosinophils (%) (Auto) % (0.4-6.7) Basophils (%) (Auto) % (0.3-1.4) Nucleated RBC Relative Count (auto) /100WBC Neutrophils # (Auto) K/uL (2.0-7.4) Lymphocytes # (Auto) K/uL (1.3-3.6) Monocytes # (Auto) K/uL (0.3-1.0) Eosinophils # (Auto) K/uL (0.0-0.5) Basophils # (Auto) K/uL (0.0-0.1) Nucleated RBC Absolute Count (auto) K/uL Neutrophils % (Manual) 68 % (39.4-72.5) Lymphocytes % (Manual) 14 % (17.6-49.6) Atypical Lymphocytes % 12 % Monocytes % (Manual) 5 % (4.1-12.4) Eosinophils % (Manual) 1 % (0.4-6.7) Basophils % (Manual) 0 % (0.3-1.4) Peripheral Blood Smear Yes Y/N Glomerular Filtration Rate Calc > 60.0 Calcium Level 9.6 mg/dl (8.4-10.2) Total Bilirubin 0.6 mg/dl (0.2-1.3) Aspartate Amino Transf (AST/SGOT) 18 U/L (0-35) Alanine Aminotransferase (ALT/SGPT) 31 U/L (0-56) Alkaline Phosphatase 69 U/L (0-126) Total Protein 8.2 g/dl (6.3-8.2) Albumin 4.5 g/dl (3.5-5.0) ED Course/Re-evaluation Clinical Indication for ER IV: IV Access ED Course 05/09/2018 8:14:29 am she improved after 50 mg of IV Benadryl, 10 mg of IV Reglan, 1 g of acetaminophen and 10 mg of IM Zyprexa. Suspect patient has opiate -induced hyperalgesia; this was discussed with the patient. Plan at this time will be to give a dose of IV Decadron to prevent rebound headache. We'll have her follow-up with her primary care provider. We'll further recommend to the hospital review for opiate use that the patient be given a treatment plan. Decision to Disposition Date: May 09, 2018 Decision to Disposition Time: 08:24 Depart Departure Latest Vital Signs Vital Signs Date Time Temp Pulse Resp B/P (MAP) Pulse Ox O2 Delivery O2 Flow Rate FiO2 05/09/18 08:32 71 11 97 05/09/18 08:30 120/69 (86) 05/09/18 06:52 2.0 05/09/18 06:46 98.6 Room Air Impression: Primary Impression: Migraine Patient Instructions: Migraine Headache (GEN) Additional Instructions: Schedule a follow-up appointment with your primary care provider within the next 2-3 days for recheck of headache and back pain. Problem Qualifiers Primary Impression: Migraine Migraine type: unspecified Status migrainosus presence: without status migrainosus Intractability: not intractable Qualified Codes: G43.909 - Migraine, unspecified, not intractable, without status migrainosus VERNON LAWS MD May 09, 2018 07:17
[2018-05-09 07:18] LABS: PLATELET COUNT, AUTOMATED 267 K/uL (150-450)
[2018-05-09] MEDS ORDERED: OLANZapine 10 MG VIAL IM ONLY ONE (07:50)
[2018-05-09] MEDS ORDERED: WATER STERILE 10 ML VIAL IM ONLY ONE (07:50)
[2018-05-09] MEDS ORDERED: DEXAMETHASONE SOD 4 MG/ML VIAL IVP ONE (08:20)
[2018-05-09 08:30] VITALS: BP 120/69
== END 2018-05-09 08:46 | disposition home or self-care (01) ==
LOC: ER 06:48
DX: G43.909 Migraine, unspecified, not intractable, without status migrainosus (principal)
CPT/HCPCS: 82040; 82247; 82310; 82374; 82435; 82565; 82947; 84075; 84132; 84155; 84295; 84450; 84460; 84520; 85025; 96365; 96372; 96375; 99284; A4216; J0131; J1100; J1200; J2405; J2765; J3490; J7030

== ENCOUNTER 2018-05-24 08:30 | Emergency (ER) | payer SELFPAY ==
[2016-01-05 09:26] VITALS: Wt 65.3 kg
[~2018-05-24 08:30] MED LIST changes: +AMLO-111 PO; +AMLO-113 PO; -AMLO-96 PO; -AMLO-99 PO
--- NOTE | 2018-05-24 08:36 | ER Report ---
History and Physical Time Seen By MD: 08:36 HPI/ROS CHIEF COMPLAINT: Splinter in foot HISTORY OF PRESENT ILLNESS: Patient states that she was walking barefoot approximately 2 weeks ago stepped on some wood and pulled some splinter out of the heel of the foot. Over the course of the next 2 week she's been having persistent pain. She denies any fevers or chills. There is no purulent discharge from the wound no erythema or redness. Patient is concerned because the symptoms have persisted so she presents to the emergency department for evaluation. Tetanus is up-to-date within the last 5 years. Allergies: Coded Allergies: amitriptyline (Verified Allergy, Severe, SWELLING, 05/09/18) Penicillins (Verified Allergy, Intermediate, SWELLING, 05/09/18) indomethacin (Verified Allergy, Intermediate, 05/09/18) metaxalone (Verified Allergy, Intermediate, ANXIETY, PACING, FEELS SWELLING IN THROAT, 05/09/18) trazodone (Verified Allergy, Intermediate, SWELLING, 05/09/18) amoxicillin (Verified Allergy, Unknown, 05/09/18) baclofen (Verified Allergy, Unknown, 05/09/18) cyclobenzaprine (Verified Allergy, Unknown, 05/09/18) Uncoded Allergies: SOME CHOLESTEROL MED (Adverse Reaction, Mild, 06/01/11) Home Meds Active Scripts Pantoprazole Sodium (PANTOPRAZOLE SODIUM) 40 Mg Tablet.dr, 40 MG PO BID, #20 TAB.SR 0 Refills take while using toradol Prov:VERNON LAWS MD 05/08/18 Ketorolac Tromethamine (KETOROLAC TROMETHAMINE) 10 Mg Tab, 10 MG PO Q6H PRN for PAIN, #20 TAB 0 Refills Prov:VERNON LAWS MD 05/08/18 Reported Medications Lidocaine (Lidocaine) 5 % Adh..patch 02/12/18 Lisinopril (LISINOPRIL) 5 Mg Tablet, 5 MG PO QDAY, TAB 02/12/18 Tizanidine Hcl (TIZANIDINE HCL) 2 Mg Capsule, 2 MG PO TID, CAPSULE 02/12/18 Amlodipine Besylate (AMLODIPINE BESYLATE) 10 Mg Tablet, 1 TAB PO QDAY, TAB 03/04/17 Paroxetine Hcl (PAROXETINE HCL) 30 Mg Tablet, 30 MG PO HS 08/12/16 Past Medical/Surgical History History of migraines, GERD Hx Smoking: Yes (VAPOR) Smoking Status: Current: Every Day Smoker Exposure to Second Hand Smoke?: No Hx Substance Use Disorder: No Hx Alcohol Use: No Constitutional Vital Sign - Last 24 Hours 05/24/18 08:44 Temp 98.4 Pulse 69 Resp 20 B/P (MAP) 144/91 Pulse Ox 89 O2 Delivery Room Air Physical Exam General appearance: alert no distress Right ankle: There is no significant swelling. There is no obvious deformity to the ankle. There is moderate tenderness to the lateral malleolus. Ankle joint is stable and there is no tenderness over the achilles tendon. The foot is noted for a well-healing ulcerative wound to the base of the heel. No erythema surrounding the wound no purulent discharge no foreign body visualized. There is a flap of skin which will need to be debrided. Wound size is 0.5 cm Neurologic exam: The patient has normal sensation distal to the injury. Vascular exam: Normal pulses and capillary refill in the foot Medical Decision Making EKG/Imaging Imaging FACILITY: [facility] [place] PATIENT NAME: Veronica Rosario : 1965 MR: [id number] V: [id number] EXAM DATE: ORDERING PHYSICIAN: VERNON LAWS TECHNOLOGIST: [place] [facility] [place]onica Ros[place] : 1965 Visit/Account:[id number] Date of Sevice: 05/24/2018 EXAMINATION: Right foot radiographs 2 views HISTORY: Stepped on wood, evaluate for foreign body COMPARISON: Toe radiographs November 17, 2017 FINDINGS: Frontal and lateral views obtained. Bones: Normal. Joint spaces: Mild degeneration of the first metatarsal-phalangeal joint space as before. Alignment: Normal. Soft tissues: No apparent dense foreign debris in the foot soft tissues. Multi ple small dense foci within the posterior ankle region subcutaneous soft tissues seen on the lateral view IMPRESSION: No fracture or malalignment. No apparent dense foreign body in the foot soft tissues. Multiple small dense foci in the posterior ankle region subcutaneous soft tissues which may represent chronic dystrophic calcifications from prior trauma or inflammation. Multiple dense foreign bodies are felt less likely. This could alternatively represent a dense structure such as clothing external to the patient. Correlate with exam and correlate with site of the patient's current injury. Report Dictated By: Ming Correia MD at 05/24/2018 9:12 AM Report E-Signed By: Ming Correia MD at 05/24/2018 9:15 AM WSN:[id number] ED Course/Re-evaluation ED Course 05/24/2018 9:26:05 am wound care was performed. Dense skin was debrided. Quiana itracin dressing was applied. X-ray showed no definitive foreign body at the site of the wound. Patient does have some calcifications around the ankle which is nowhere near where the wound site is which were felt to represent chronic inflammation. Decision to Disposition Date: May 24, 2018 Decision to Disposition Time: 09:28 Depart Departure Latest Vital Signs Vital Signs Date Time Temp Pulse Resp B/P (MAP) Pulse Ox O2 Delivery O2 Flow Rate FiO2 05/24/18 08:44 98.4 69 20 144/91 89 Room Air Impression: Primary Impression: Foot ulcer Condition: Improved Disposition: HOME OR SELF-CARE Patient Instructions: Acute Wound Care (ED) Additional Instructions: Bacitracin dressing twice per day for the next 7 days. Follow-up with your primary care physician if symptoms do not improve over the next 7-10 days. Return to the emergency department if you develops worsening pain, red streaking or pus from the wound. Or if you developed a fever. Problem Qualifiers Primary Impression: Foot ulcer Laterality: right Non-pressure ulcer stage: limited to breakdown of skin Qualified Codes: L97.511 - Non-pressure chronic ulcer of other part of right foot limited to breakdown of skin VERNON LAWS MD May 24, 2018 08:36
--- NOTE | 2018-05-24 09:17 | RADIOLOGY IMAGING REPORT ---
FACILITY: [facility] PATIENT NAME: Veronica Rosario : 1965 MR: [id number] V: [id number] EXAM DATE: ORDERING PHYSICIAN: VERNON LAWS TECHNOLOGIST: Location: [facility] - [place] Patient: Veronica Rosario : 1965 Visit/Account:[id number] Date of Sevice: 05/24/2018 EXAMINATION: Right foot radiographs 2 views HISTORY: Stepped on wood, evaluate for foreign body COMPARISON: Toe radiographs November 17, 2017 FINDINGS: Frontal and lateral views obtained. Bones: Normal. Joint spaces: Mild degeneration of the first metatarsal-phalangeal joint space as before. Alignment: Normal. Soft tissues: No apparent dense foreign debris in the foot soft tissues. Multiple small dense foci within the posterior ankle region subcutaneous soft tissues seen on the lateral view IMPRESSION: No fracture or malalignment. No apparent dense foreign body in the foot soft tissues. Multiple small dense foci in the posterior ankle region subcutaneous soft tissues which may represent chronic dystrophic calcifications from prior trauma or inflammation. Multiple dense foreign bodies are felt less likely. This could alternatively represent a dense structure such as clothing external to the patient. Correlate with exam and correlate with site of the patient's current injury. Report Dictated By: Ming Correia MD at 05/24/2018 9:12 AM Report E-Signed By: Ming Correia MD at 05/24/2018 9:15 AM WSN:[id number]
[2018-05-24 09:30] VITALS: BP 144/91
== END 2018-05-24 09:37 | disposition home or self-care (01) ==
LOC: ER 08:44
DX: L97.511 Non-pressure chronic ulcer of other part of right foot limited to breakdown of skin (principal)
CPT/HCPCS: 99283

== ENCOUNTER 2018-06-23 11:06 | Emergency (ER) | payer SELFPAY ==
[2016-01-05 09:26] VITALS: BMI 40.0
[2018-06-23 11:10] VITALS: BP 144/87
--- NOTE | 2018-06-23 11:10 | ER Report ---
History and Physical Time Seen By MD: 11:09 HPI/ROS CHIEF COMPLAINT: Thinks a bug bit her in the eye. HISTORY OF PRESENT ILLNESS: Patient has multiple bug bites over her body but had swelling to the right eyelid is concerned she may have been bitten the eye. No respiratory symptoms no fevers or chills. REVIEW OF SYSTEMS: Respiratory: No cough, no dyspnea. Cardiovascular: No chest pain, no palpitations. Gastrointestinal: No vomiting, no abdominal pain. Musculoskeletal: No back pain. Allergies: Coded Allergies: amitriptyline (Verified Allergy, Severe, SWELLING, 05/09/18) Penicillins (Verified Allergy, Intermediate, SWELLING, 05/09/18) indomethacin (Verified Allergy, Intermediate, 05/09/18) metaxalone (Verified Allergy, Intermediate, ANXIETY, PACING, FEELS SWELLING IN THROAT, 05/09/18) trazodone (Verified Allergy, Intermediate, SWELLING, 05/09/18) amoxicillin (Verified Allergy, Unknown, 05/09/18) baclofen (Verified Allergy, Unknown, 05/09/18) cyclobenzaprine (Verified Allergy, Unknown, 05/09/18) Uncoded Allergies: SOME CHOLESTEROL MED (Adverse Reaction, Mild, 06/01/11) Home Meds Active Scripts Pantoprazole Sodium (PANTOPRAZOLE SODIUM) 40 Mg Tablet.dr, 40 MG PO BID, #20 TAB.SR 0 Refills take while using toradol Prov:VERNON LAWS MD 05/08/18 Ketorolac Tromethamine (KETOROLAC TROMETHAMINE) 10 Mg Tab, 10 MG PO Q6H PRN for PAIN, #20 TAB 0 Refills Prov:VERNON LAWS MD 05/08/18 Reported Medications Lidocaine (Lidocaine) 5 % Adh..patch 02/12/18 Lisinopril (LISINOPRIL) 5 Mg Tablet, 5 MG PO QDAY, TAB 02/12/18 Tizanidine Hcl (TIZANIDINE HCL) 2 Mg Capsule, 2 MG PO TID, CAPSULE 02/12/18 Amlodipine Besylate (AMLODIPINE BESYLATE) 10 Mg Tablet, 1 TAB PO QDAY, TAB 03/04/17 Paroxetine Hcl (PAROXETINE HCL) 30 Mg Tablet, 30 MG PO HS 08/12/16 Hx Smoking: Yes (VAPOR) Smoking Status: Current: Every Day Smoker Exposure to Second Hand Smoke?: No Hx Substance Use Disorder: No Hx Alcohol Use: No Constitutional Vital Sign - Last 24 Hours 06/23/18 11:10 Pulse 79 Resp 20 B/P (MAP) 144/87 Pulse Ox 91 O2 Delivery Room Air Physical Exam General appearance: Alert no distress. Skin exam: Multiple bug bite Eye exam: Pulse are equally round and reactive to light and accommodation. Lamp exam under fluorescein reveals no uptake of dye. No obvious ulceration or dendritic lesions noted. Medical Decision Making ED Course/Re-evaluation ED Course 06/23/2018 11:25:38 am plan at this time will be both oral steroids and antihistamines as an outpatient. Patient to follow-up routinely with her primary care provider Decision to Disposition Date: Jun 23, 2018 Decision to Disposition Time: 11:25 Depart Departure Latest Vital Signs Vital Signs Date Time Temp Pulse Resp B/P (MAP) Pulse Ox O2 Delivery O2 Flow Rate FiO2 06/23/18 11:10 79 20 144/87 91 Room Air Impression: Primary Impression: Bug bite of face without infection Condition: Improved Disposition: HOME OR SELF-CARE New Scripts Cyproheptadine Hcl (CYPROHEPTADINE HCL) 4 Mg Tablet 4 MG PO Q8H for itching/rash, #30 TAB 0 Refills Prov: VERNON LAWS MD 06/23/18 Prednisone (PREDNISONE) 20 Mg Tablet 20 MG PO QDAY, #5 TAB 0 Refills Prov: VERNON LAWS MD 06/23/18 Patient Instructions: Insect Bite or Sting (DC) Problem Qualifiers Primary Impression: Bug bite of face without infection Encounter type: initial encounter Qualified Codes: S00.86XA - Insect bite (nonvenomous) of other part of head, initial encounter; W57.XXXA - Bitten or stung by nonvenomous insect and other nonvenomous arthropods, initial encounter VERNON LAWS MD Jun 23, 2018 11:10
[2018-06-23] MEDS ORDERED: PROPARACAI/FLUORESCEIN 5 ML OP DROPS OP ONE (11:20)
[2018-06-23] MEDS ORDERED: CYPR4TAB5 PO (11:27)
[2018-06-23] MEDS ORDERED: PRED20TA6 PO (11:27)
== END 2018-06-23 11:33 | disposition home or self-care (01) ==
LOC: ER 11:21
DX: S00.261A Insect bite (nonvenomous) of right eyelid and periocular area, initial encounter (principal); W57.XXXA Bitten or stung by nonvenomous insect and other nonvenomous arthropods, initial encounter
CPT/HCPCS: 99283

== ENCOUNTER 2018-07-24 12:10 | Emergency (ER) | payer SELFPAY ==
[2016-01-05 09:26] VITALS: BMI 40.0
[~2018-07-24 12:10] MED LIST changes: +CYPR4TAB5 PO; -HYDR-4309 PO; +HYDR-653 PO
--- NOTE | 2018-07-24 12:19 | ER Report ---
History and Physical Time Seen By MD: 12:19 Hx. of Stated Complaint: patient reports migrane for 2 hours HPI/ROS CHIEF COMPLAINT: Headache HISTORY OF PRESENT ILLNESS: 53-year-old female patient presents to emergency room with complaint of headache. Patient states that she's had this headache for approximately 2 hours. She states that prior to the headache starting she did have some lights flashing the edges of her vision. She states that then the headache started. She did take some ibuprofen with no relief. She states proximal and one hour ago the vomiting started. She she's not been able keep anything down. Patient states that this feels like a typical migraine and not the worse headache of her life. REVIEW OF SYSTEMS: Respiratory: No cough, no dyspnea. Cardiovascular: No chest pain, no palpitations. Gastrointestinal: As noted above Musculoskeletal: No back pain. Allergies: Coded Allergies: amitriptyline (Verified Allergy, Severe, SWELLING, 05/09/18) Penicillins (Verified Allergy, Intermediate, SWELLING, 05/09/18) indomethacin (Verified Allergy, Intermediate, 05/09/18) metaxalone (Verified Allergy, Intermediate, ANXIETY, PACING, FEELS SWELLING IN THROAT, 05/09/18) trazodone (Verified Allergy, Intermediate, SWELLING, 05/09/18) amoxicillin (Verified Allergy, Unknown, 05/09/18) baclofen (Verified Allergy, Unknown, 05/09/18) cyclobenzaprine (Verified Allergy, Unknown, 05/09/18) Uncoded Allergies: SOME CHOLESTEROL MED (Adverse Reaction, Mild, 06/01/11) Home Meds Active Scripts Cyproheptadine Hcl (CYPROHEPTADINE HCL) 4 Mg Tablet, 4 MG PO Q8H for itching/rash, #30 TAB 0 Refills Prov:VERNON LAWS MD 06/23/18 Prednisone (PREDNISONE) 20 Mg Tablet, 20 MG PO QDAY, #5 TAB 0 Refills Prov:VERNON LAWS MD 06/23/18 Pantoprazole Sodium (PANTOPRAZOLE SODIUM) 40 Mg Tablet.dr, 40 MG PO BID, #20 TAB.SR 0 Refills take while using toradol Prov:VERNON LAWS MD 05/08/18 Ketorolac Tromethamine (KETOROLAC TROMETHAMINE) 10 Mg Tab, 10 MG PO Q6H PRN for PAIN, #20 TAB 0 Refills Prov:VERNON LAWS MD 05/08/18 Reported Medications Lidocaine (Lidocaine) 5 % Adh..patch 02/12/18 Lisinopril (LISINOPRIL) 5 Mg Tablet, 5 MG PO QDAY, TAB 02/12/18 Tizanidine Hcl (TIZANIDINE HCL) 2 Mg Capsule, 2 MG PO TID, CAPSULE 02/12/18 Amlodipine Besylate (AMLODIPINE BESYLATE) 10 Mg Tablet, 1 TAB PO QDAY, TAB 03/04/17 Paroxetine Hcl (PAROXETINE HCL) 30 Mg Tablet, 30 MG PO HS 08/12/16 Past Medical/Surgical History Patient has a past medical history of migraines, palpitations, hypertension, asthma, pneumonia, reflux, cholecystitis, frequent UTI, rheumatoid arthritis, degenerative joint disease, depression, anxiety. Patient has a surgical history of tubal ligation, cholecystectomy, appendectomy. Patient has a family medical history of CAD, stroke, diabetes. Reviewed Nurses Notes: Yes Hx Smoking: Yes (VAPOR) Smoking Status: Current: Every Day Smoker Exposure to Second Hand Smoke?: No Hx Substance Use Disorder: No Hx Alcohol Use: No Constitutional Vital Sign - Last 24 Hours 07/24/18 07/24/18 07/24/18 07/24/18 12:14 12:16 12:25 12:30 Temp 97.9 Pulse 78 76 B/P (MAP) 145/108 (120) 145/108 (120) 156/118 (131) Pulse Ox 95 88 O2 Delivery Room Air 07/24/18 07/24/18 07/24/18 07/24/18 12:40 12:55 13:00 13:10 Pulse 78 69 81 B/P (MAP) 129/89 (102) Pulse Ox 91 96 83 07/24/18 07/24/18 07/24/18 07/24/18 13:25 13:30 13:40 13:55 Pulse 77 71 80 B/P (MAP) 123/86 (98) Pulse Ox 97 94 95 07/24/18 07/24/18 07/24/18 07/24/18 14:00 14:05 14:20 14:30 Pulse 68 73 B/P (MAP) ???/??? (1665) 119/94 (102) Pulse Ox 96 96 11/02/0307/24/18 07/24/18 07/24/18 14:35 14:50 15:00 15:05 Pulse 64 68 ??? B/P (MAP) 117/68 (84) Pulse Ox 97 98 Physical Exam General Appearance: The patient is alert, has no immediate need for airway protection and no current signs of toxicity. Eyes: Pupils equal and round no injection. Extraocular movements intact. Respiratory: Chest is non tender, lungs are clear to auscultation. Cardiac: regular rate and rhythm Gastrointestinal: Abdomen is soft and non tender, no masses, bowel sounds normal. Musculoskeletal: Neck: Neck is supple and non tender. Extremities have full range of motion and are non tender. Skin: No rashes or lesions. DIFFERENTIAL DIAGNOSIS: After history and physical exam differential diagnosis was considered for headache including but not limited to subarachnoid hemorrhage, migraine headache, tension headache and infectious causes such as meningitis, pharyngitis and sinusitis. Medical Decision Making Data Points Result Diagram: 07/24/18 1325 07/24/18 1325 Laboratory Hematology Test 07/24/18 13:25 Red Blood Count 4.93 M/uL (4.17-5.56) Mean Corpuscular Volume 88.4 fL (80.0-96.0) Mean Corpuscular Hemoglobin 29.0 pg (26.0-33.0) Mean Corpuscular Hemoglobin Concent 32.8 g/dL (32.0-36.0) Red Cell Distribution Width 13.5 % (11.5-14.5) Mean Platelet Volume 8.7 fL (7.2-11.1) Neutrophils (%) (Auto) 75.1 % (39.4-72.5) Lymphocytes (%) (Auto) 13.4 % (17.6-49.6) Monocytes (%) (Auto) 8.3 % (4.1-12.4) Eosinophils (%) (Auto) 2.2 % (0.4-6.7) Basophils (%) (Auto) 1.0 % (0.3-1.4) Nucleated RBC Relative Count (auto) 0.0 /100WBC Neutrophils # (Auto) 7.0 K/uL (2.0-7.4) Lymphocytes # (Auto) 1.3 K/uL (1.3-3.6) Monocytes # (Auto) 0.8 K/uL (0.3-1.0) Eosinophils # (Auto) 0.2 K/uL (0.0-0.5) Basophils # (Auto) 0.1 K/uL (0.0-0.1) Nucleated RBC Absolute Count (auto) 0.00 K/uL Erythrocyte Sedimentation Rate 7 mm/HOUR (0-30) Sodium Level 142 mmol/L (137-145) Potassium Level 3.6 mmol/L (3.5-5.0) Chloride Level 107 mmol/L (98-107) Carbon Dioxide Level 28 mmol/L (22-31) Blood Urea Nitrogen 16 mg/dl (7-18) Creatinine 0.60 mg/dl (0.52-1.04) Glomerular Filtration Rate Calc > 60.0 Random Glucose 104 mg/dl (75-110) Calcium Level 8.3 mg/dl (8.4-10.2) Total Bilirubin 0.2 mg/dl (0.2-1.3) Aspartate Amino Transf (AST/SGOT) 13 U/L (0-35) Alanine Aminotransferase (ALT/SGPT) 24 U/L (0-56) Alkaline Phosphatase 53 U/L (0-126) C-Reactive Protein 0.5 mg/dl (<1.0) Total Protein 6.7 g/dl (6.3-8.2) Albumin 3.6 g/dl (3.5-5.0) Chemistry Test 07/24/18 13:25 White Blood Count 9.3 k/uL (4.5-11.0) Red Blood Count 4.93 M/uL (4.17-5.56) Hemoglobin 14.3 g/dL (12.0-16.0) Hematocrit 43.6 % (34.0-47.0) Mean Corpuscular Volume 88.4 fL (80.0-96.0) Mean Corpuscular Hemoglobin 29.0 pg (26.0-33.0) Mean Corpuscular Hemoglobin Concent 32.8 g/dL (32.0-36.0) Red Cell Distribution Width 13.5 % (11.5-14.5) Platelet Count 251 K/uL (150-450) Mean Platelet Volume 8.7 fL (7.2-11.1) Neutrophils (%) (Auto) 75.1 % (39.4-72.5) Lymphocytes (%) (Auto) 13.4 % (17.6-49.6) Monocytes (%) (Auto) 8.3 % (4.1-12.4) Eosinophils (%) (Auto) 2.2 % (0.4-6.7) Basophils (%) (Auto) 1.0 % (0.3-1.4) Nucleated RBC Relative Count (auto) 0.0 /100WBC Neutrophils # (Auto) 7.0 K/uL (2.0-7.4) Lymphocytes # (Auto) 1.3 K/uL (1.3-3.6) Monocytes # (Auto) 0.8 K/uL (0.3-1.0) Eosinophils # (Auto) 0.2 K/uL (0.0-0.5) Basophils # (Auto) 0.1 K/uL (0.0-0.1) Nucleated RBC Absolute Count (auto) 0.00 K/uL Erythrocyte Sedimentation Rate 7 mm/HOUR (0-30) Glomerular Filtration Rate Calc > 60.0 Calcium Level 8.3 mg/dl (8.4-10.2) Total Bilirubin 0.2 mg/dl (0.2-1.3) Aspartate Amino Transf (AST/SGOT) 13 U/L (0-35) Alanine Aminotransferase (ALT/SGPT) 24 U/L (0-56) Alkaline Phosphatase 53 U/L (0-126) C-Reactive Protein 0.5 mg/dl (<1.0) Total Protein 6.7 g/dl (6.3-8.2) Albumin 3.6 g/dl (3.5-5.0) ED Course/Re-evaluation ED Course Patient was admitted to exam room, history and physical were obtained. Differential diagnoses were considered. On examination lungs are clear, heart is regular, abdomen is soft and nontender. Patient is complaining of significant headache. An IV was started, patient received a liter of normal saline. Patient received same cocktail she had back in April. She received 50 mg of Benadryl, 10 mg of Reglan, 1 g of Tylenol. Patient had improvement. She was starting to have some twitching in her right leg. Patient was given Decadron and monitored. Patient had persistent shaking of the right leg. I believe that is likely an extrapyramidal side effect of the medication. Patient was given 1 mg of Cogentin and had improvement in her symptoms. She is tired and feels like she is ready for home at this time. Patient will be discharged home. She is follow-up with her primary care provider in the next week. She returns emergency room if condition worsens. Patient verbalized understanding and agreement with plan. Decision to Disposition Date: Jul 24, 2018 Decision to Disposition Time: 15:15 Depart Departure Latest Vital Signs Vital Signs Date Time Temp Pulse Resp B/P (MAP) Pulse Ox O2 Delivery O2 Flow Rate FiO2 07/24/18 15:05 ??? 07/24/18 15:00 117/68 (84) 07/24/18 14:50 98 07/24/18 12:16 97.9 Room Air Impression: Primary Impression: Headache Condition: Improved Disposition: HOME OR SELF-CARE Patient Instructions: Acute Headache (ED) Additional Instructions: Increase fluid intake. Get plenty of rest. Follow up with your primary care provider in the next week. Return to the ER if condition worsens. Continue with your normal medications, Problem Qualifiers Primary Impression: Headache Headache type: other headache syndrome Qualified Codes: G44.89 - Other headache syndrome CARSON PIERRE Jul 24, 2018 12:19
[2018-07-24] MEDS ORDERED: NS(*) 0.9% 1000 ML BAG 1,000 ML IV ONE (12:25)
[2018-07-24] MEDS ORDERED: diphenhydrAMINE 50 MG/ML VIAL IVP ONE (12:30)
[2018-07-24] MEDS ORDERED: OLANZapine 10 MG VIAL IM ONLY ONE (12:30)
[2018-07-24] MEDS ORDERED: WATER STERILE 10 ML VIAL IM ONLY ONE (12:30)
[2018-07-24] MEDS ORDERED: METOCLOPRAMIDE 10 MG/2 ML SDV IVP ONE (12:30)
[2018-07-24] MEDS ORDERED: ACETAMINOPHEN(*)1000 MG/100 ML 100 ML IVPB ONE (12:30)
[2018-07-24] MEDS ORDERED: DEXAMETHASONE SOD 4 MG/ML VIAL IVP ONE (13:15)
[2018-07-24 13:30] LABS: PLATELET COUNT, AUTOMATED 251 K/uL (150-450)
[2018-07-24] MEDS ORDERED: BENZTROPINE MESY IVP ONE (14:30)
[2018-07-24 15:00] VITALS: BP 117/68
== END 2018-07-24 15:26 | disposition home or self-care (01) ==
LOC: ER 13:07
DX: G44.89 Other headache syndrome (principal)
CPT/HCPCS: 36415; 85025; 85651; 86140; 96361; 96365; 96372; 96375; 99284; A4216; J0131; J0515; J1100; J1200; J2765; J3490; J7030; 82040; 82247; 82310; 82374; 82435; 82565; 82947; 84075; 84132; 84155; 84295; 84450; 84460; 84520

== ENCOUNTER 2018-07-27 06:54 | Emergency (ER) | payer SELFPAY ==
[2016-01-05 09:26] VITALS: Wt 90.7 kg
--- NOTE | 2018-07-27 07:00 | ER Report ---
History and Physical Time Seen By MD: 07:00 HPI/ROS CHIEF COMPLAINT: Headache HISTORY OF PRESENT ILLNESS: Patient is a 53-year-old female here with complaints of migraine headache with typical distribution, nausea, vomiting, photosensitivity without visual disturbances. Patient denies fevers, chest pain, shortness breath, abdominal pain, focal neurological deficits. Headache started approximately 1:30 this morning and patient took ibuprofen without relief of symptoms. Patient reports that she has not had a headache specialist and she moved to [place]. Patient is hemodynamically stable, denies change in pain distribution. She reports active nausea and vomiting. REVIEW OF SYSTEMS: Constitutional: No fever, no chills. Eyes: + photosensitivity ENT: No sore throat. Cardiovascular: No chest pain, no palpitations. Respiratory: No cough, no shortness of breath. Gastrointestinal: No abdominal pain, no vomiting. Genitourinary: No hematuria. Musculoskeletal: No back pain. Skin: No rashes. Neurological: + frontal headache, no focal deficits Allergies: Coded Allergies: amitriptyline (Verified Allergy, Severe, SWELLING, 07/27/18) Penicillins (Verified Allergy, Intermediate, SWELLING, 07/27/18) indomethacin (Verified Allergy, Intermediate, 07/27/18) metaxalone (Verified Allergy, Intermediate, ANXIETY, PACING, FEELS SWELLING IN THROAT, 07/27/18) trazodone (Verified Allergy, Intermediate, SWELLING, 07/27/18) amoxicillin (Verified Allergy, Unknown, 07/27/18) baclofen (Verified Allergy, Unknown, 07/27/18) cyclobenzaprine (Verified Allergy, Unknown, 07/27/18) Uncoded Allergies: SOME CHOLESTEROL MED (Adverse Reaction, Mild, 06/01/11) Home Meds Reported Medications Lidocaine (Lidocaine) 5 % Adh..patch 02/12/18 Lisinopril (LISINOPRIL) 5 Mg Tablet, 5 MG PO QDAY, TAB 02/12/18 Amlodipine Besylate (AMLODIPINE BESYLATE) 10 Mg Tablet, 1 TAB PO QDAY, TAB 03/04/17 Paroxetine Hcl (PAROXETINE HCL) 30 Mg Tablet, 30 MG PO HS 08/12/16 Discontinued Reported Medications Tizanidine Hcl (TIZANIDINE HCL) 2 Mg Capsule, 2 MG PO TID, CAPSULE 02/12/18 Discontinued Scripts Cyproheptadine Hcl (CYPROHEPTADINE HCL) 4 Mg Tablet, 4 MG PO Q8H for itching/rash, #30 TAB 0 Refills Prov:VERNON LAWS MD 06/23/18 Prednisone (PREDNISONE) 20 Mg Tablet, 20 MG PO QDAY, #5 TAB 0 Refills Prov:VERNON LAWS MD 06/23/18 Pantoprazole Sodium (PANTOPRAZOLE SODIUM) 40 Mg Tablet.dr, 40 MG PO BID, #20 TAB.SR 0 Refills take while using toradol Prov:VERNON LAWS MD 05/08/18 Ketorolac Tromethamine (KETOROLAC TROMETHAMINE) 10 Mg Tab, 10 MG PO Q6H PRN for PAIN, #20 TAB 0 Refills Prov:VERNON LAWS MD 05/08/18 Hx Smoking: Yes (VAPOR) Smoking Status: Current: Every Day Smoker Exposure to Second Hand Smoke?: No Hx Substance Use Disorder: No Hx Alcohol Use: No Constitutional Vital Sign - Last 24 Hours 07/27/18 06:59 Temp 98.0 Pulse 68 Resp 22 B/P (MAP) 147/113 Pulse Ox 92 Physical Exam General Appearance: The patient is alert, has no immediate need for airway protection and no signs of toxicity. Moderate discomfort due to pain Eyes: Pupils equal and round no pallor or injection. ENT, Mouth: Mucous membranes are moist. Respiratory: There are no retractions, lungs are clear to auscultation. Cardiovascular: Regular rate and rhythm. Gastrointestinal: Abdomen is soft and non tender, no masses, bowel sounds norm al. Neurological: No focal neuro deficits or weakness Skin: Warm and dry, no rashes. Musculoskeletal: Neck is supple non tender. Extremities are nontender, nonswollen and have full range of motion. DIFFERENTIAL DIAGNOSIS: After history and physical exam differential diagnosis was considered for headache including but not limited to subarachnoid hemorrhage, migraine headache, tension headache and infectious causes such as meningitis, pharyngitis and sinusitis. Medical Decision Making ED Course/Re-evaluation ED Course Patient is a 53-year-old female with a history of chronic migraines last seen here on July 24 for similar symptoms within unremarkable lab workup at that time. Patient reports that her symptoms are consistent with her typical migraine frontal distribution with some radiation to the right side of her head with associated photosensitivity, nausea and vomiting. Patient took ibuprofen this morning at approximately 2:00 when the pain started. She reports having a headache physician back when she was living in [place] but has not seen one since she moved to [place]. Patient is afebrile, denies focal neurological deficits nor was a focal neurological deficits elicited on examination. Patient received normal saline bolus, Benadryl, Toradol, Decadron, magnesium, Reglan for her migraine cocktail. Patient was advised to follow up closely with her PCP. Due to her recurrent symptoms, I advised the patient that may be beneficial follow up with a headache specialist in order to better prevent or treat her headaches in the outpatient setting. Patient was advised to return promptly hira uld develop worsening symptoms, focal neurological deficits, fevers, neck stiffness, nausea vomiting. Decision to Disposition Date: Jul 27, 2018 Decision to Disposition Time: 09:00 Depart Departure Latest Vital Signs Vital Signs Date Time Temp Pulse Resp B/P (MAP) Pulse Ox O2 Delivery O2 Flow Rate FiO2 07/27/18 06:59 98.0 68 22 147/113 92 Impression: Primary Impression: Headache Additional Impressions: Nausea & vomiting Photosensitivity Condition: Improved Disposition: HOME OR SELF-CARE Patient Instructions: Migraine Headache (GEN) Additional Instructions: Please drink plenty of water. Please follow-up with a headache specialist in ordered to be placed on abortive medications in order to treat your headaches more effectively in the outpatient setting. Please follow-up with your family doctor in the next 2 days for follow-up evaluation and care. Problem Qualifiers JAYJAY HARRY DO Jul 27, 2018 07:00
[2018-07-27] MEDS ORDERED: DEXAMETHASONE SOD PHOS 10MG/ML IVP ONE (07:10)
[2018-07-27] MEDS ORDERED: KETOROLAC 30 MG/ML VIAL IVP ONE (07:10)
[2018-07-27] MEDS ORDERED: diphenhydrAMINE 50 MG/ML VIAL IVP ONE (07:10)
[2018-07-27] MEDS ORDERED: NS(*) 0.9% 1000 ML BAG 1,000 ML IV ONE (07:10)
[2018-07-27] MEDS ORDERED: METOCLOPRAMIDE 10 MG/2 ML SDV IVP ONE (07:10)
[2018-07-27] MEDS ORDERED: MAGNESIUM SUL/D5W* 1 GM/100 ML 100 ML IVPB ONE (07:10)
[2018-07-27 08:30] VITALS: BP 147/88
== END 2018-07-27 09:18 | disposition home or self-care (01) ==
LOC: ER 07:09
DX: R51 Headache (principal); R11.2 Nausea with vomiting, unspecified; H53.149 Visual discomfort, unspecified; F17.210 Nicotine dependence, cigarettes, uncomplicated
CPT/HCPCS: 96365; 96375; 99284; J1100; J1200; J1885; J2765; J3475; J7030; 99285

== ENCOUNTER 2018-08-04 15:06 | Emergency (ER) | payer SELFPAY ==
[2016-01-05 09:26] VITALS: Wt 90.7 kg
--- NOTE | 2018-08-04 16:08 | ER Report ---
History and Physical Time Seen By MD: 15:58 Hx. of Stated Complaint: RIGHT FOOT PAIN IT IS THE GOUT HPI/ROS CHIEF COMPLAINT: Gout HISTORY OF PRESENT ILLNESS: This is a 53-year-old female who presents to the emergency department for concerns of a gouty flare-up. Patient states that yesterday she began to have some right great toe discomfort consistent with her history of gout. Patient states she's been taking ibuprofen with little relief. Patient decided to come in for further evaluation. No recent fevers or chills. No nausea or vomiting. No other concerns. Patient does state this is a typical gouty flare. REVIEW OF SYSTEMS: Respiratory: No cough, no dyspnea. Cardiovascular: No chest pain, no palpitations. Gastrointestinal: No vomiting, no abdominal pain. Musculoskeletal: As above. Allergies: Coded Allergies: amitriptyline (Verified Allergy, Severe, SWELLING, 08/04/18) Penicillins (Verified Allergy, Intermediate, SWELLING, 08/04/18) indomethacin (Verified Allergy, Intermediate, 08/04/18) metaxalone (Verified Allergy, Intermediate, ANXIETY, PACING, FEELS SWELLING IN THROAT, 08/04/18) trazodone (Verified Allergy, Intermediate, SWELLING, 08/04/18) amoxicillin (Verified Allergy, Unknown, 08/04/18) baclofen (Verified Allergy, Unknown, 08/04/18) cyclobenzaprine (Verified Allergy, Unknown, 08/04/18) Uncoded Allergies: SOME CHOLESTEROL MED (Adverse Reaction, Mild, 06/01/11) Home Meds Active Scripts Colchicine (Colchicine) 0.6 Mg Capsule, 1 CAPSULE PO NOW, #1 TAB 0 Refills Prov:KIT SERRANO [employer] 08/04/18 Reported Medications Lidocaine (Lidocaine) 5 % Adh..patch 02/12/18 Lisinopril (LISINOPRIL) 5 Mg Tablet, 5 MG PO QDAY, TAB 02/12/18 Amlodipine Besylate (AMLODIPINE BESYLATE) 10 Mg Tablet, 1 TAB PO QDAY, TAB 03/04/17 Paroxetine Hcl (PAROXETINE HCL) 30 Mg Tablet, 30 MG PO HS 08/12/16 Past Medical/Surgical History The patient has a past medical and surgical history of migraines, palpitations, hypertension, asthma, pneumonia, cholecystectomy, arthritis, wears glasses, prediabetic, depression, anxiety, gout, appendectomy, tubal ligation. Reviewed Nurses Notes: Yes Hx Smoking: Yes (VAPOR) Smoking Status: Current: Every Day Smoker Exposure to Second Hand Smoke?: No Hx Substance Use Disorder: No Hx Alcohol Use: No Constitutional Vital Sign - Last 24 Hours 08/04/18 08/04/18 08/04/18 08/04/18 15:11 15:22 15:30 15:36 Temp 98.6 Pulse 88 87 Resp 18 B/P (MAP) 138/108 (118) 138/101 138/92 (107) Pulse Ox 99 89 O2 Delivery Room Air 08/04/18 08/04/18 08/04/18 08/04/18 16:00 16:06 16:11 16:30 Pulse 88 88 B/P (MAP) 119/73 (88) 132/96 (108) 08/04/18 16:41 Pulse 87 Physical Exam General Appearance: The patient is alert, has no immediate need for airway protection and no current signs of toxicity. Eyes: Pupils equal and round no injection. Respiratory: Chest is non tender, lungs are clear to auscultation. Cardiac: regular rate and rhythm. Gastrointestinal: Abdomen is soft and non tender, no masses, bowel sounds normal. Musculoskeletal: Neck: Neck is supple and non tender. Extremities right great toe discomfort with palpation. No erythema or cellulitis noted. Skin: No rashes or lesions. DIFFERENTIAL DIAGNOSIS: After history and physical exam differential diagnosis was considered for gout, cellulitis, osteoarthritis. Medical Decision Making ED Course/Re-evaluation ED Course The patient was admitted to room. A history and physical were obtained. Differential diagnoses were considered. The patient was complaining of a gouty flareup, I did evaluate the foot, she states this is consistent with her previous gout flareups. Patient requesting pain medication, as she is allergic to indomethacin I did give her colchicine. She was given a loading dose here and the last pill was sent to the patient's pharmacy. The patient has no other questions or concerns at this time and was discharged home. I did recommend following up with the patient's primary care provider in [facility], next week. The patient was in agreement with this plan care. Decision to Disposition Date: Aug 04, 2018 Decision to Disposition Time: 16:48 Depart Departure Latest Vital Signs Vital Signs Date Time Temp Pulse Resp B/P (MAP) Pulse Ox O2 Delivery O2 Flow Rate FiO2 08/04/18 16:41 87 08/04/18 16:30 132/96 (108) 08/04/18 15:36 89 08/04/18 15:22 98.6 18 Room Air Impression: Primary Impression: Gout Condition: Improved Disposition: HOME OR SELF-CARE New Scripts Colchicine (Colchicine) 0.6 Mg Capsule 1 CAPSULE PO NOW, #1 TAB 0 Refills Prov: KIT SERRANO 08/04/18 Patient Instructions: Gout (ED) Additional Instructions: After taking the Colchicine today, you can start taking Ibuprofen tomorrow. You can take 800mg every 8 hours as needed, this may take a few days to completely resolve. Drink plenty of water. Get plenty of rest. Follow up with your PCP next week for reevaluation. Return to the ED for any other concerns or worsening symptoms. Problem Qualifiers Primary Impression: Gout Gout site: toe Gout etiology: unspecified cause Chronicity: acute Laterality: right Qualified Codes: M10.9 - Gout, unspecified KIT SERRANO Aug 04, 2018 16:08
[2018-08-04] MEDS ORDERED: COLCHICINE 0.6 MG TAB PO ONE (16:10)
[2018-08-04] MEDS ORDERED: COLC0.6C3 PO (16:18)
[2018-08-04 16:30] VITALS: BP 132/96
== END 2018-08-04 17:04 | disposition home or self-care (01) ==
LOC: ER 15:21
DX: M10.9 Gout, unspecified (principal); F17.210 Nicotine dependence, cigarettes, uncomplicated
CPT/HCPCS: 99283

== ENCOUNTER 2018-08-05 14:17 | Emergency (ER) | payer SELFPAY ==
[2016-01-05 09:26] VITALS: Wt 90.7 kg
[~2018-08-05 14:17] MED LIST changes: +COLC0.6C3 PO
[2018-08-05] MEDS ORDERED: NS(*) 0.9% 1000 ML BAG 1,000 ML IV ONE (14:40)
--- NOTE | 2018-08-05 14:42 | ER Report ---
History and Physical Time Seen By MD: 14:25 Hx. of Stated Complaint: PATIENT BECAME STARTED HAVING ABDOMINAL PAIN AND VOMITING AROUND 2 HOURS AGO HPI/ROS CHIEF COMPLAINT: abdominal pain HISTORY OF PRESENT ILLNESS: Pt presents with abd pain that began at noon. She was seen yest for gout, had colchicine x2 in ed without adverse effect, has some improvement in gout symtpoms. Took ibuprofen x 1 this am at 7 without adv ef fect. Pt c/o nausea, vomiting x 2 (spitting up food contents), REVIEW OF SYSTEMS: Constitutional: [No fever, no chills.] Eyes: [No discharge.] ENT: [No sore throat.] Cardiovascular: [No chest pain, no palpitations.] Respiratory: [No cough, no shortness of breath.] Gastrointestinal: [No abdominal pain, no vomiting.] Genitourinary: [No hematuria.] Musculoskeletal: [No back pain.] Skin: [No rashes.] Neurological: [No headache.] Remainder of the 14 system rev: Yes Allergies: Coded Allergies: amitriptyline (Verified Allergy, Severe, SWELLING, 08/04/18) Penicillins (Verified Allergy, Intermediate, SWELLING, 08/04/18) indomethacin (Verified Allergy, Intermediate, 08/04/18) metaxalone (Verified Allergy, Intermediate, ANXIETY, PACING, FEELS SWELLING IN THROAT, 08/04/18) trazodone (Verified Allergy, Intermediate, SWELLING, 08/04/18) amoxicillin (Verified Allergy, Unknown, 08/04/18) baclofen (Verified Allergy, Unknown, 08/04/18) cyclobenzaprine (Verified Allergy, Unknown, 08/04/18) Uncoded Allergies: SOME CHOLESTEROL MED (Adverse Reaction, Mild, 06/01/11) Home Meds Active Scripts Colchicine (Colchicine) 0.6 Mg Capsule, 1 CAPSULE PO NOW, #1 TAB 0 Refills Prov:KIT SERRANO [employer]PERATOR [employer]-BC 08/04/18 Reported Medications Lidocaine (Lidocaine) 5 % Adh..patch 02/12/18 Lisinopril (LISINOPRIL) 5 Mg Tablet, 5 MG PO QDAY, TAB 02/12/18 Amlodipine Besylate (AMLODIPINE BESYLATE) 10 Mg Tablet, 1 TAB PO QDAY, TAB 03/04/17 Paroxetine Hcl (PAROXETINE HCL) 30 Mg Tablet, 30 MG PO HS 08/12/16 Reviewed Nurses Notes: Yes Old Medical Records Reviewed: Yes Hx Smoking: Yes (VAPOR) Smoking Status: Current: Every Day Smoker Exposure to Second Hand Smoke?: No Hx Substance Use Disorder: No Hx Alcohol Use: No Constitutional Vital Sign - Last 24 Hours 08/05/18 08/05/18 08/05/18 08/05/18 14:17 14:21 14:22 14:30 Temp 98.2 Pulse ??? 101 Resp 24 B/P (MAP) 196/138 196/138 (157) 143/119 (127) Pulse Ox 91 O2 Delivery Room Air 08/05/18 08/05/18 08/05/18 08/05/18 14:47 15:17 15:30 15:35 Pulse 105 87 81 B/P (MAP) 118/105 (109) Pulse Ox 94 90 96 08/05/18 08/05/18 16:00 16:05 Pulse 78 B/P (MAP) 110/102 (105) Pulse Ox 97 Intake and Output 08/05/18 08/05/18 08/06/18 15:00 23:00 07:00 Intake Total 1050 ml Balance 1050 ml Physical Exam General Appearance: The patient is alert, has no immediate need for airway protection and no signs of toxicity. pt is tearful, holding epigastrum Eyes: Pupils equal and round no pallor or injection. ENT, Mouth: Mucous membranes are moist. Respiratory: There are no retractions, lungs are clear to auscultation. Cardiovascular: Regular rate and rhythm. Gastrointestinal: very mild epigastric ttp, no ruq ttp Neurological: alert, oriented, nad Skin: Warm and dry, no rashes. Musculoskeletal: Extremities are nontender, nonswollen and have full range of motion. DIFFERENTIAL DIAGNOSIS: After history and physical exam differential diagnosis was considered for abdominal pain including but not limited to appendicitis, aaa, mesenteric ischemia, cholecystitis, gastritis and urinary tract infectio n.chest pain including but not limited to myocardial ischemia, pericarditis pulmonary embolus, chest wall pain, pleural inflammation and pulmonary infectious causes. Medical Decision Making Data Points Result Diagram: 08/05/18 1435 08/05/18 1435 Laboratory Hematology Test 08/05/18 14:35 Red Blood Count 5.79 M/uL (4.17-5.56) Mean Corpuscular Volume 87.9 fL (80.0-96.0) Mean Corpuscular Hemoglobin 29.2 pg (26.0-33.0) Mean Corpuscular Hemoglobin Concent 33.2 g/dL (32.0-36.0) Red Cell Distribution Width 14.7 % (11.5-14.5) Mean Platelet Volume 9.5 fL (7.2-11.1) Neutrophils (%) (Auto) 67.8 % (39.4-72.5) Lymphocytes (%) (Auto) 19.9 % (17.6-49.6) Monocytes (%) (Auto) 8.0 % (4.1-12.4) Eosinophils (%) (Auto) 3.4 % (0.4-6.7) Basophils (%) (Auto) 0.9 % (0.3-1.4) Nucleated RBC Relative Count (auto) 0.1 /100WBC Neutrophils # (Auto) 6.5 K/uL (2.0-7.4) Lymphocytes # (Auto) 1.9 K/uL (1.3-3.6) Monocytes # (Auto) 0.8 K/uL (0.3-1.0) Eosinophils # (Auto) 0.3 K/uL (0.0-0.5) Basophils # (Auto) 0.1 K/uL (0.0-0.1) Nucleated RBC Absolute Count (auto) 0.01 K/uL Sodium Level 139 mmol/L (137-145) Potassium Level 4.2 mmol/L (3.5-5.0) Chloride Level 100 mmol/L (98-107) Carbon Dioxide Level 30 mmol/L (22-31) Blood Urea Nitrogen 25 mg/dl (7-18) Creatinine 0.60 mg/dl (0.52-1.04) Glomerular Filtration Rate Calc > 60.0 Random Glucose 133 mg/dl (75-110) Calcium Level 10.0 mg/dl (8.4-10.2) Total Bilirubin 0.4 mg/dl (0.2-1.3) Aspartate Amino Transf (AST/SGOT) 29 U/L (0-35) Alanine Aminotransferase (ALT/SGPT) 44 U/L (0-56) Alkaline Phosphatase 88 U/L (0-126) Troponin I < 0.012 ng/ml Total Protein 8.3 g/dl (6.3-8.2) Albumin 4.4 g/dl (3.5-5.0) Lipase 164 U/L (23-300) Chemistry Test 08/05/18 14:35 White Blood Count 9.6 k/uL (4.5-11.0) Red Blood Count 5.79 M/uL (4.17-5.56) Hemoglobin 16.9 g/dL (12.0-16.0) Hematocrit 50.9 % (34.0-47.0) Mean Corpuscular Volume 87.9 fL (80.0-96.0) Mean Corpuscular Hemoglobin 29.2 pg (26.0-33.0) Mean Corpuscular Hemoglobin Concent 33.2 g/dL (32.0-36.0) Red Cell Distribution Width 14.7 % (11.5-14.5) Platelet Count 306 K/uL (150-450) Mean Platelet Volume 9.5 fL (7.2-11.1) Neutrophils (%) (Auto) 67.8 % (39.4-72.5) Lymphocytes (%) (Auto) 19.9 % (17.6-49.6) Monocytes (%) (Auto) 8.0 % (4.1-12.4) Eosinophils (%) (Auto) 3.4 % (0.4-6.7) Basophils (%) (Auto) 0.9 % (0.3-1.4) Nucleated RBC Relative Count (auto) 0.1 /100WBC Neutrophils # (Auto) 6.5 K/uL (2.0-7.4) Lymphocytes # (Auto) 1.9 K/uL (1.3-3.6) Monocytes # (Auto) 0.8 K/uL (0.3-1.0) Eosinophils # (Auto) 0.3 K/uL (0.0-0.5) Basophils # (Auto) 0.1 K/uL (0.0-0.1) Nucleated RBC Absolute Count (auto) 0.01 K/uL Glomerular Filtration Rate Calc > 60.0 Calcium Level 10.0 mg/dl (8.4-10.2) Total Bilirubin 0.4 mg/dl (0.2-1.3) Aspartate Amino Transf (AST/SGOT) 29 U/L (0-35) Alanine Aminotransferase (ALT/SGPT) 44 U/L (0-56) Alkaline Phosphatase 88 U/L (0-126) Troponin I < 0.012 ng/ml Total Protein 8.3 g/dl (6.3-8.2) Albumin 4.4 g/dl (3.5-5.0) Lipase 164 U/L (23-300) ED Course/Re-evaluation ED Course Pt presents with significant epigastric pain, recently placed on colchicine and taking ibuprofen. Pain is completely relieved with maalox, while this is not clearly diagonstic, repeat exam shows no tenderness, aas shows no free air, and low likelihood emergent etiology. Given rf for gastritis, pud, after ed eval, this is most likely etiology. pt very comfortable on d/c; will initiate pepcid, maalox, and pt understands srp's and need to avoid ibuprofen/colchicine. As gout is improving, she is comfortable with tylenol at this point. Decision to Disposition Date: Aug 05, 2018 Decision to Disposition Time: 16:15 Depart Departure Latest Vital Signs Vital Signs Date Time Temp Pulse Resp B/P (MAP) Pulse Ox O2 Delivery O2 Flow Rate FiO2 08/05/18 16:05 78 97 08/05/18 16:00 110/102 (105) 08/05/18 14:21 98.2 24 Room Air Impression: Primary Impression: Abdominal pain Condition: Improved Disposition: HOME OR SELF-CARE Patient Instructions: Gastritis (ED) Additional Instructions: I am glad your pain was fully relieved by the maalox. As we discussed, I recommend you start Pepcid daily and maalox as needed; both can be purchased over the counter. Take for at least 2 weeks, follow up with your primary doctor for further guidacne. Return immediately for uncontrolled pain, vomiting, or any concerns. Tylenol, 975 mg every 8-12 hours is the safest medication for your gout. Problem Qualifiers Primary Impression: Abdominal pain Abdominal location: epigastric Qualified Codes: R10.13 - Epigastric pain VERNON KRISHNAMURTHY MD Aug 05, 2018 14:42
[2018-08-05 14:56] LABS: PLATELET COUNT, AUTOMATED 306 K/uL (150-450)
[2018-08-05] MEDS ORDERED: LIDOCAINE 2% VISC SLN 15ML UDC PO ONE (15:05)
[2018-08-05] MEDS ORDERED: MAG HYD/AL HYD/SIMETH 30ML UDC PO ONE (15:05)
[2018-08-05] MEDS ORDERED: FAMOTIDINE(*) 20MG/50ML PREMIX 50 ML IVPB ONE (15:05)
--- NOTE | 2018-08-05 15:22 | RADIOLOGY IMAGING REPORT ---
FACILITY: [facility] [place] PATIENT NAME: Veronica Rosario : 1965 MR: [id number] V: [id number] EXAM DATE: ORDERING PHYSICIAN: VERNON KRISHNAMURTHY TECHNOLOGIST: Location: [facility] [place] Patient: Veronica Rosario : 1965 Visit/Account:[id number] Date of Sevice: 08/05/2018 ACUTE ABDOMEN SERIES 3 VIEW HISTORY: Abdominal pain, epigastric distention. COMPARISON: X-ray examination of the chest May 02, 2018 FINDINGS: Stable elevation right hemidiaphragm with linear type atelectasis/scarring right base. No evidence of new consolidation, effusion or pneumothorax. Air-fluid levels noted in the stomach. There is a nonsp ecific, but nonobstructive bowel pattern. Air is noted within distended but nondilated loops of colon . No pneumatosis or free air. IMPRESSION: 1. No evidence of acute cardiopulmonary process 2. Nonobstructive bowel pattern without radiographic evidence of pathology Report Dictated By: Jonathan Prajapati MD at 08/05/2018 3:16 PM Report E-Signed By: Jonathan Prajapati MD at 08/05/2018 3:19 PM WSN:[id number]
[2018-08-05 16:00] VITALS: BP 110/102
== END 2018-08-05 16:30 | disposition home or self-care (01) ==
LOC: ER 14:22
DX: R10.13 Epigastric pain (principal)
CPT/HCPCS: 74022; 83690; 84484; 85025; 96361; 96374; 99284; J3490; J7030; 82040; 82247; 82310; 82374; 82435; 82565; 82947; 84075; 84132; 84155; 84295; 84450; 84460; 84520

== ENCOUNTER 2018-12-17 08:06 | Emergency (ER) | payer SELFPAY ==
[2016-01-05 09:26] VITALS: Wt 90.7 kg
[~2018-12-17 08:06] MED LIST changes: -AMLO-111 PO; -AMLO-113 PO; +AMLO-125 PO; +AMLO-127 PO
--- NOTE | 2018-12-17 08:10 | ER Report ---
History and Physical Time Seen By MD: 08:10 HPI/ROS CHIEF COMPLAINT: Headache HISTORY OF PRESENT ILLNESS: Patient is a 53-year-old female with any known history of recurrent migraines here with complaints of headache which started shortly prior to arrival within the last hour. Patient reports that this is her typical distribution of headache with associated nausea, vomiting, photosensitivity originating from of the head radiating to the occipital region. Patient denies focal neurological deficits. Patient is visibly uncomfortable, reporting several episodes of nausea and vomiting. Patient has not taken any medications prior to arrival. REVIEW OF SYSTEMS: Constitutional: No fever, no chills. Eyes: No discharge. ENT: No sore throat. Cardiovascular: No chest pain, no palpitations. Respiratory: No cough, no shortness of breath. Gastrointestinal: No abdominal pain, no vomiting, + nausea. Genitourinary: No hematuria. Musculoskeletal: No back pain. Skin: No rashes. Neurological: + typical migraine headache. Allergies: Coded Allergies: amitriptyline (Verified Allergy, Severe, SWELLING, 08/04/18) Penicillins (Verified Allergy, Intermediate, SWELLING, 08/04/18) indomethacin (Verified Allergy, Intermediate, 08/04/18) metaxalone (Verified Allergy, Intermediate, ANXIETY, PACING, FEELS SWELLING IN THROAT, 08/04/18) trazodone (Verified Allergy, Intermediate, SWELLING, 08/04/18) amoxicillin (Verified Allergy, Unknown, 08/04/18) baclofen (Verified Allergy, Unknown, 08/04/18) cyclobenzaprine (Verified Allergy, Unknown, 08/04/18) Uncoded Allergies: SOME CHOLESTEROL MED (Adverse Reaction, Mild, 06/01/11) Home Meds Reported Medications Tizanidine Hcl (TIZANIDINE HCL) 2 Mg Capsule, 5 MG PO PRN, CAPSULE 12/17/18 Lidocaine (Lidocaine) 5 % Adh..patch 02/12/18 Lisinopril (LISINOPRIL) 5 Mg Tablet, 5 MG PO QDAY, TAB 02/12/18 Amlodipine Besylate (AMLODIPINE BESYLATE) 10 Mg Tablet, 1 TAB PO QDAY, TAB 03/04/17 Paroxetine Hcl (PAROXETINE HCL) 30 Mg Tablet, 30 MG PO HS 08/12/16 Discontinued Scripts Colchicine (Colchicine) 0.6 Mg Capsule, 1 CAPSULE PO NOW, #1 TAB 0 Refills Prov:KIT SERRANO DRUG SAFETY COORDINATOR-BC 08/04/18 Hx Smoking: Yes (VAPOR) Smoking Status: Current: Every Day Smoker Exposure to Second Hand Smoke?: No Hx Substance Use Disorder: No Hx Alcohol Use: No Constitutional Vital Sign - Last 24 Hours 12/17/18 08:25 Temp 98.1 Pulse 77 Resp 16 Pulse Ox 84 O2 Delivery Room Air Physical Exam General Appearance: The patient is alert, has no immediate need for airway protection and no signs of toxicity. Moderate distress and uncomfortable appearing Eyes: Pupils equal and round no pallor or injection. ENT, Mouth: Mucous membranes are moist. Respiratory: There are no retractions, lungs are clear to auscultation. Cardiovascular: Regular rate and rhythm. Gastrointestinal: Abdomen is soft and non tender, no masses, bowel sounds normal. Neurological: No focal neurological deficits Skin: Warm and dry, no rashes. Musculoskeletal: Neck is supple non tender. Extremities are nontender, nonswollen and have full range of motion. DIFFERENTIAL DIAGNOSIS: After history and physical exam differential diagnosis was considered for headache including but not limited to subarachnoid hemorrhage, migraine headache, tension headache and infectious causes such as meningitis, pharyngitis and sinusitis. Medical Decision Making ED Course/Re-evaluation ED Course Patient is a 53-year-old female here with complaints of typical migraine hea dache symptoms. Symptoms started within the last hour. Patient was given normal saline bolus, magnesium, Reglan, Toradol, Benadryl, Decadron for symptomatic treatment. Patient had significant relief of symptoms. Patient was stable at time of discharge. Return precautions provided. Decision to Disposition Date: Dec 17, 2018 Decision to Disposition Time: 10:50 Depart Departure Latest Vital Signs Vital Signs Date Time Temp Pulse Resp B/P (MAP) Pulse Ox O2 Delivery O2 Flow Rate FiO2 12/17/18 08:25 98.1 77 16 84 Room Air Impression: Primary Impression: Migraine Condition: Improved Disposition: HOME OR SELF-CARE Patient Instructions: Migraine Headache (GEN) Additional Instructions: Please drink plenty of water. Please take your medications as prescribed. Please return immediately if you develop motor weakness, numbness, inability keep down food or fluids, fevers or chills, worsening headache. JAYJAY HARRY DO Dec 17, 2018 08:10
[2018-12-17] MEDS ORDERED: TIZA2CAP3 PO (08:30)
[2018-12-17] MEDS ORDERED: NS(*) 0.9% 1000 ML BAG 1,000 ML IV ONE (08:33)
[2018-12-17] MEDS ORDERED: METOCLOPRAMIDE 10 MG/2 ML SDV IVP ONE (08:35)
[2018-12-17] MEDS ORDERED: KETOROLAC 30 MG/ML VIAL IVP ONE (08:35)
[2018-12-17] MEDS ORDERED: MAGNESIUM SUL* 2 GM/50 ML IVPB 50 ML IVPB ONE (08:35)
[2018-12-17] MEDS ORDERED: DEXAMETHASONE SOD PHOS 10MG/ML IVP ONE (08:35)
[2018-12-17] MEDS ORDERED: diphenhydrAMINE 50 MG/ML VIAL IVP ONE (08:35)
[2018-12-17 10:00] VITALS: BP 138/85
== END 2018-12-17 10:57 | disposition home or self-care (01) ==
LOC: ER 08:51
DX: G43.909 Migraine, unspecified, not intractable, without status migrainosus (principal)
CPT/HCPCS: 96361; 96374; 96375; 99284; J1100; J1200; J1885; J2765; J3475; J7030

== ENCOUNTER 2018-12-28 10:24 | Emergency (ER) | payer MEDICAID ==
[2016-01-05 09:26] VITALS: Wt 104.3 kg
[2018-12-28] MEDS ORDERED: NS(*) 0.9% 1000 ML BAG 1,000 ML IV ONE (10:46)
[2018-12-28] MEDS ORDERED: DEXAMETHASONE SOD PHOS 10MG/ML IVP ONE (10:50)
--- NOTE | 2018-12-28 10:54 | ER Report ---
History and Physical Time Seen By MD: 10:54 HPI/ROS Slipped on the kitchen rug one week ago, and now presents to the ED with low back pain. No changes in bowel or bladder. Pain is mostly right of the midline, but also in the midline as well. No hematuria. Has been using a heating pad and ice. No relief with home meds. No other injuries. No neck pain. No LOC. No focal neuro complaints/deficits. Allergies: Coded Allergies: amitriptyline (Verified Allergy, Severe, SWELLING, 12/28/18) Penicillins (Verified Allergy, Intermediate, SWELLING, 12/28/18) indomethacin (Verified Allergy, Intermediate, 12/28/18) metaxalone (Verified Allergy, Intermediate, ANXIETY, PACING, FEELS SWELLING IN THROAT, 12/28/18) trazodone (Verified Allergy, Intermediate, SWELLING, 12/28/18) amoxicillin (Verified Allergy, Unknown, 08/04/18) baclofen (Verified Allergy, Unknown, 12/28/18) cyclobenzaprine (Verified Allergy, Unknown, 12/28/18) Uncoded Allergies: SOME CHOLESTEROL MED (Adverse Reaction, Mild, 06/01/11) Home Meds Active Scripts Tramadol Hcl (TRAMADOL HCL) 50 Mg Tablet, 50 MG PO Q6H PRN for PAIN, #8 TAB 0 Refills Prov:KASHMIR KRISHNAMURTHY MD 12/28/18 Reported Medications Tizanidine Hcl (TIZANIDINE HCL) 2 Mg Capsule, 2 MG PO PRN, CAPSULE 12/17/18 Lidocaine (Lidocaine) 5 % Adh..patch 02/12/18 Lisinopril (LISINOPRIL) 5 Mg Tablet, 5 MG PO QDAY, TAB 02/12/18 Amlodipine Besylate (AMLODIPINE BESYLATE) 10 Mg Tablet, 1 TAB PO QDAY, TAB 03/04/17 Paroxetine Hcl (PAROXETINE HCL) 30 Mg Tablet, 30 MG PO HS 08/12/16 Reviewed Nurses Notes: Yes Old Medical Records Reviewed: Yes Hx Smoking: Yes (VAPOR) Smoking Status: Current: Every Day Smoker Exposure to Second Hand Smoke?: No Hx Substance Use Disorder: No Hx Alcohol Use: No Constitutional Vital Sign - Last 24 Hours 12/28/18 12/28/18 12/28/18 12/28/18 10:34 10:36 10:54 11:00 Temp 97.5 Pulse 74 63 Resp 24 B/P (MAP) 202/123 (149) 202/123 149/73 (98) Pulse Ox 90 88 O2 Delivery Room Air 12/28/18 12/28/18 12/28/18 11:24 11:30 12:00 Pulse 62 B/P (MAP) 145/78 (100) 144/92 (109) Pulse Ox 95 Physical Exam General Appearance: The patient is alert, has no immediate need for airway protection and no signs of toxicity. Eyes: Pupils equal and round no pallor or injection. ENT, Mouth: Mucous membranes are moist. Respiratory: There are no retractions, lungs are clear to auscultation. Cardiovascular: Regular rate and rhythm. Gastrointestinal: Abdomen is soft and non tender, no masses, bowel sounds normal. Neurological: sensation/strength grossly in tact. Normal gait. Skin: Warm and dry, no rashes. Musculoskeletal: Mild midline TTP of the L-spine Neck is supple non tender. Extremities are nontender, nonswollen and have full range of motion DIFFERENTIAL DIAGNOSIS: After history and physical exam differential diagnosis was considered for back pain including but not limited to muscular pain, herniated disc, spine fracture, intra-abdominal causes and urinary tract infection. Medical Decision Making ED Course/Re-evaluation ED Course Normal no exam. No urinary symptoms. Normal x-ray. Symptoms consistent with muscle spasm and strain also causing sciatica on the right side. Pain improved with Toradol, Decadron, and by mouth Valium. No further testing needed. Follow- up with primary care physician. Decision to Disposition Date: Dec 28, 2018 Decision to Disposition Time: 14:02 Depart Departure Latest Vital Signs Vital Signs Date Time Temp Pulse Resp B/P (MAP) Pulse Ox O2 Delivery O2 Flow Rate FiO2 12/28/18 12:00 144/92 (109) 12/28/18 11:24 62 95 12/28/18 10:36 97.5 24 Room Air Impression: Primary Impression: Low back pain Condition: Improved Disposition: HOME OR SELF-CARE New Scripts Tramadol Hcl (TRAMADOL HCL) 50 Mg Tablet 50 MG PO Q6H PRN for PAIN, #8 TAB 0 Refills Prov: KASHMIR KRISHNAMURTHY MD 12/28/18 Patient Instructions: Low Back Strain (ED) Problem Qualifiers Primary Impression: Low back pain Chronicity: acute Back pain laterality: right Sciatica presence: with sciatica Sciatica laterality: sciatica of right side Qualified Codes: M54.41 - Lumbago with sciatica, right side KASHMIR KRISHNAMURTHY MD Dec 28, 2018 10:54
[2018-12-28] MEDS ORDERED: DIAZEPAM 5 MG TAB PO ONE (10:55)
[2018-12-28 13:30] VITALS: BP 135/77
[2018-12-28] MEDS ORDERED: KETOROLAC 30 MG/ML VIAL IVP ONE (13:40)
[2018-12-28] MEDS ORDERED: TRAM-420 PO (13:52)
--- NOTE | 2018-12-28 14:18 | RADIOLOGY IMAGING REPORT ---
FACILITY: [facility] PATIENT NAME: Veronica Rosario : 1965 MR: [id number] V: [id number] EXAM DATE: ORDERING PHYSICIAN: KASHMIR KRISHNAMURTHY TECHNOLOGIST: Location: [facility] Patient: Veronica Rosario : 1965 Visit/Account:[id number] Date of Sevice: 12/28/2018 L-SPINE 2 OR 3 VIEW INDICATION: Back pain after fall. COMPARISON: 05/08/2018. FINDINGS: 3 views of the lumbar spine. There are 5 nonrib-bearing lumbar vertebral bodies. There is minimal anterior spondylolisthesis of L4 over L5 due to facet arthropathy. This measures approximate ly 3 mm and is unchanged. The remaining vertebral bodies are aligned. No compression fractures, bony lesions or spondylolysis. There is mild degenerative changes mainly in the lower lumbar spine. These include mild disc space narrowing and minimal osteophytes. Mild/moderate facet arthropathy is present . The appearance is unchanged from previous examination. The endplates are maintained. The pedicles a re well seen. Soft tissues unremarkable with a stable benign calcination in the pelvis. Surgical clip s in the right upper quadrant. IMPRESSION: Stable degenerative changes without acute abnormality. Report Dictated By: Madan Ugalde at 12/28/2018 2:11 PM Report E-Signed By: Madan Ugalde at 12/28/2018 2:13 PM WSN:[id number]
== END 2018-12-28 14:07 | disposition home or self-care (01) ==
LOC: ER 10:59
DX: M54.41 Lumbago with sciatica, right side (principal)
CPT/HCPCS: 72100; 96361; 96374; 96375; 99284; J1100; J1885; J7030

== ENCOUNTER 2019-03-05 13:10 | Emergency (ER) | payer MEDICAID ==
[2016-01-05 09:26] VITALS: Wt 98.4 kg
[2019-03-05 13:13] VITALS: BP 154/100
[2019-03-05] MEDS ORDERED: HYDR-2966 PO (13:19)
[2019-03-05] MEDS ORDERED: GABA-549 PO (13:22)
--- NOTE | 2019-03-05 13:23 | ER Report ---
History and Physical Time Seen By MD: 13:17 Hx. of Stated Complaint: PAIN ON BOTH JAWS RIGHT SIDE, STARTED LAST NIGHT HPI/ROS CHIEF COMPLAINT: Dental pain HISTORY OF PRESENT ILLNESS: Patient is a 54-year-old female frequent visitor to emergency department for multiple pain complaints she is currently on an ED care plan comes back to the ER today with a complaint of tooth pain. Patient states she's been grinding her teeth lately has a dental appointment in 2 days and ran out of her tramadol just unable to take the pain anymore patient denies any headaches fever chills or sweats that she bites down and has a lot of TMJ type discomfort. Patient denies any fever chills or sweats nausea vomiting additional complaints pain is localized to the right upper and right lower a site of her dentition. REVIEW OF SYSTEMS: Respiratory: No cough, no dyspnea. Cardiovascular: No chest pain, no palpitations. Gastrointestinal: No vomiting, no abdominal pain. Musculoskeletal: No back pain. Remainder of the 14 system rev: Yes Allergies: Coded Allergies: amitriptyline (Verified Allergy, Severe, SWELLING, 12/28/18) Penicillins (Verified Allergy, Intermediate, SWELLING, 12/28/18) indomethacin (Verified Allergy, Intermediate, 12/28/18) metaxalone (Verified Allergy, Intermediate, ANXIETY, PACING, FEELS SWELLING IN THROAT, 12/28/18) trazodone (Verified Allergy, Intermediate, SWELLING, 12/28/18) amoxicillin (Verified Allergy, Unknown, 08/04/18) baclofen (Verified Allergy, Unknown, 12/28/18) cyclobenzaprine (Verified Allergy, Unknown, 12/28/18) Uncoded Allergies: SOME CHOLESTEROL MED (Adverse Reaction, Mild, 06/01/11) Home Meds Active Scripts Tramadol Hcl (TRAMADOL HCL) 50 Mg Tablet, 50 MG PO Q6H PRN for PAIN, #8 TAB 0 Refills Prov:KASHMIR KRISHNAMURTHY MD 12/28/18 Reported Medications Tizanidine Hcl (TIZANIDINE HCL) 2 Mg Capsule, 2 MG PO PRN, CAPSULE 12/17/18 Lidocaine (Lidocaine) 5 % Adh..patch 02/12/18 Lisinopril (LISINOPRIL) 5 Mg Tablet, 5 MG PO QDAY, TAB 02/12/18 Amlodipine Besylate (AMLODIPINE BESYLATE) 10 Mg Tablet, 1 TAB PO QDAY, TAB 03/04/17 Paroxetine Hcl (PAROXETINE HCL) 30 Mg Tablet, 30 MG PO HS 08/12/16 Reviewed Nurses Notes: Yes Old Medical Records Reviewed: Yes Hx Smoking: Yes (VAPOR) Smoking Status: Current: Every Day Smoker Exposure to Second Hand Smoke?: No Hx Substance Use Disorder: No Hx Alcohol Use: No Constitutional Vital Sign - Last 24 Hours 03/05/19 13:13 Temp 97.8 Pulse 92 Resp 16 B/P (MAP) 154/100 Pulse Ox 88 O2 Delivery Room Air Physical Exam General appearance: Alert no distress. Respiratory: Chest is non tender, lungs are clear to auscultation. Cardiac: Regular rate and rhythm [ ] Oral dental examination oral mucosa is within normal limits signs of infection or gingival hyperplasia or infectious noted no obvious dental caries or is a missing tooth on the right posterior area no sign of infectious etiology of any kind patient had full range of motion TMJ DIFFERENTIAL DIAGNOSIS: After history and physical exam differential diagnosis was considered for TMJ versus dental caries Medical Decision Making ED Course/Re-evaluation ED Course ED course 54-year-old female who comes here for complaint of dental pain patient is currently ED care plan I did give her a copy of her care plan she has been for narcotic refill I declined that (gabapentin at this is true TMG or neuropathic pain she's taking Orajel advised to continue on her own medications at home and follow-up in the next 24-40 hours as scheduled with a dentist diagnosis dental pain Decision to Disposition Date: Mar 05, 2019 Decision to Disposition Time: 13:20 Depart Departure Latest Vital Signs Vital Signs Date Time Temp Pulse Resp B/P (MAP) Pulse Ox O2 Delivery O2 Flow Rate FiO2 03/05/19 13:13 97.8 92 16 154/100 88 Room Air Impression: Primary Impression: Pain, dental Condition: Condition Unchanged Disposition: HOME OR SELF-CARE Referrals: SEBASTIAN GRANT APRN MEDICAL RECORD CLERK-C 5 Days New Scripts Gabapentin (GABAPENTIN) 300 Mg Capsule 300 MG PO TID for 10 Days, #30 CAPSULE Prov: ALBERT SUAREZ MD 03/05/19 Patient Instructions: Toothache (ED) ALBERT SUAREZ MD Mar 05, 2019 13:23
== END 2019-03-05 13:29 | disposition home or self-care (01) ==
LOC: ER 13:28
DX: K08.89 Other specified disorders of teeth and supporting structures (principal)
CPT/HCPCS: 99281